=== PATIENT | female | born 1955 | race Hispanic/Latino ===

== ENCOUNTER 2017-07-05 11:24 | Inpatient (IN) | payer OTHER ==
--- NOTE | 2017-07-05 12:21 | XRay Report ---
AP CHEST: HISTORY: Dyspnea AP view of the chest demonstrates a normal mediastinal and cardiac contour with clear lungs and normal bony and soft tissue structures. Azygos lobe is noted. IMPRESSION: Unremarkable AP chest.
--- NOTE | 2017-07-05 12:30 | Emergency Department Report ---
ED General Adult HPI - General Chief complaint: Dyspnea/Respdistress Stated complaint: DIFFICULTY BREATHING Time Seen by Provider: 07/05/17 11:57 Source: patient Mode of arrival: Stretcher Limitations: Physical Limitation - History of Present Illness Initial comments: The patient arrives via EMS accompanied by her . She was placed on CPAP in the field. I do not know what her initial room air saturation was likely it was low. Upon arrival she is switched to BiPAP. She states that she has had tightness of her anterior chest. Her reports that she was seen at [place] on 05/31 and told she had the flu. She has been coughing up some [place] sputum. She thinks that she had a fever about 3 days ago but not subsequently. Her chest tightness is mildly persistent not radiating nor pleuritic. She's had no recent travel. She denies leg or abdominal pain. Previous review of her records indicates that she was admitted here in 2014. She had an exacerbation of COPD. She is a type II diabetic. She states that she does use CPAP at night. -: Gradual, days(s) Location: chest Radiation: non-radiation Severity scale (0 -10): 7 Quality: other (tightness) Consistency: now resolved (largely) Improves with: none Worsens with: none Associated Symptoms: cough, fever/chills, shortness of breath Treatments Prior to Arrival: other - Related Data Previous Rx's Medication Instructions Recorded Last Taken Type Aspirin [Aspirin BABY CHEW TAB] 81 mg PO ONCE #30 tab.chew 08/18/14 Unknown Rx Benzonatate [Tessalon Perles] 100 mg PO Q8HR #30 capsule 08/18/14 Unknown Rx Glimepiride [Amaryl] 1 mg PO QDDIAB #30 tablet 08/18/14 Unknown Rx Levothyroxine [Synthroid] 150 mcg PO QAM #30 tab 08/18/14 Unknown Rx Loratadine [Claritin] 10 mg PO QDAY #30 tablet 08/18/14 Unknown Rx Mometasone/Formoterol [Dulera 200 2 puff IH BID #1 hfa.aer.ad 08/18/14 Unknown Rx Mcg/5 Mcg Inhaler] Montelukast [Singulair] 10 mg PO QPM #30 tablet 08/18/14 Unknown Rx Omeprazole [PriLOSEC] 20 mg PO QDAY #30 capsule.dr 08/18/14 Unknown Rx Prednisone [predniSONE (Grady) ER 20 mg PO QDAY #40 tab 08/18/14 Unknown Rx TAB] Tiotropium [Spiriva] 18 mcg INHALATION DAILY #10 box 08/18/14 Unknown Rx metFORMIN [Glucophage] 500 mg PO BID #60 tablet 08/18/14 Unknown Rx Allergies Allergy/AdvReac Type Severity Reaction Status Date / Time No Known Allergies Allergy Verified 10/08/14 17:35 ED Review of Systems ROS: Stated complaint: DIFFICULTY BREATHING Other details as noted in HPI Constitutional: denies: chills, fever Eyes: denies: eye pain, eye discharge, vision change ENT: denies: ear pain, throat pain Respiratory: cough, shortness of breath, wheezing Cardiovascular: chest pain. denies: palpitations Endocrine: no symptoms reported Gastrointestinal: denies: abdominal pain, nausea, diarrhea Genitourinary: denies: urgency, dysuria, discharge Musculoskeletal: denies: back pain, joint swelling, arthralgia Skin: denies: rash, lesions Neurological: denies: headache, weakness, paresthesias Psychiatric: denies: anxiety, depression Hematological/Lymphatic: denies: easy bleeding, easy bruising ED Past Medical Hx - Past Medical History Hx Hypertension: Yes Hx CVA: No Hx Congestive Heart Failure: No Hx Diabetes: Yes Hx Deep Vein Thrombosis: No Hx Liver Disease: Yes Hx Sickle Cell Disease: No Hx Psychiatric Treatment: No Hx Asthma: No Hx COPD: Yes Hx Dementia: No Hx HIV: No Additional medical history: Hypothyriodism - Surgical History Past Surgical History?: No Hx Coronary Stent: No Hx Open Heart Surgery: No Hx Pacemaker: No Hx Internal Defibrillator: No Hx Cholecystectomy: No Hx Appendectomy: No Hx Breast Surgery: No - Social History Smoking Status: Former Smoker Substance Use Type: None - Medications Home Medications: Home Medications Medication Instructions Recorded Confirmed Last Taken Type Aspirin [Aspirin BABY CHEW TAB] 81 mg PO ONCE #30 tab.chew 08/18/14 Unknown Rx Benzonatate [Tessalon Perles] 100 mg PO Q8HR #30 capsule 08/18/14 Unknown Rx Glimepiride [Amaryl] 1 mg PO QDDIAB #30 tablet 08/18/14 Unknown Rx Levothyroxine [Synthroid] 150 mcg PO QAM #30 tab 08/18/14 Unknown Rx Loratadine [Claritin] 10 mg PO QDAY #30 tablet 08/18/14 Unknown Rx Mometasone/Formoterol [Dulera 200 2 puff IH BID #1 hfa.aer.ad 08/18/14 Unknown Rx Mcg/5 Mcg Inhaler] Montelukast [Singulair] 10 mg PO QPM #30 tablet 08/18/14 Unknown Rx Omeprazole [PriLOSEC] 20 mg PO QDAY #30 capsule.dr 08/18/14 Unknown Rx Prednisone [predniSONE (Grady) ER 20 mg PO QDAY #40 tab 08/18/14 Unknown Rx TAB] Tiotropium [Spiriva] 18 mcg INHALATION DAILY #10 box 08/18/14 Unknown Rx metFORMIN [Glucophage] 500 mg PO BID #60 tablet 08/18/14 Unknown Rx ED Physical Exam - General Limitations: Physical Limitation General appearance: alert, in no apparent distress, obese - Head Head exam: Present: atraumatic, normocephalic - Eye Eye exam: Present: normal appearance, PERRL, EOMI. Absent: scleral icterus - ENT ENT exam: Present: mucous membranes moist - Neck Neck exam: Present: normal inspection. Absent: tenderness, meningismus - Respiratory Respiratory exam: Present: decreased breath sounds (somewhat distant), other ( on BiPAP). Absent: respiratory distress, accessory muscle use - Cardiovascular Cardiovascular Exam: Present: regular rate, normal rhythm. Absent: systolic murmur, diastolic murmur, rubs, gallop - GI/Abdominal GI/Abdominal exam: Present: soft, normal bowel sounds. Absent: distended, tenderness, guarding, rebound - Extremities Exam Extremities exam: Present: normal inspection, normal capillary refill. Absent: calf tenderness - Back Exam Back exam: Present: normal inspection - Neurological Exam Neurological exam: Present: alert, oriented X3, CN II-XII intact. Absent: motor sensory deficit - Psychiatric Psychiatric exam: Present: normal affect, normal mood - Skin Skin exam: Present: warm, dry, intact, normal color. Absent: rash ED Course Vital Signs 07/05/17 07/05/17 11:32 12:21 Temperature 98.1 F Pulse Rate 92 H Respiratory 24 22 Rate Blood Pressure 145/63 O2 Sat by Pulse 95 95 Oximetry - Reevaluation(s) Reevaluation #1: D-dimer and additional labs yet pending. Patient is doing well on BiPAP. ABG is still pending. Discussed with Dr. Crouch. He will order antibiotics and provide further care. 07/05/17 13:02 ED Medical Decision Making - Lab Data Result diagrams: 07/05/17 12:20 - EKG Data -: EKG Interpreted by Me EKG shows normal: sinus rhythm, axis, intervals, QRS complexes, ST-T waves - EKG Data Interpretation: other (mild inferolateral ST sagging and prolonged QT) - Radiology Data interpreted by me: Chest x-ray shows a normal cardiac silhouette. There is some basilar atelectasis mostly on the left. Critical Care Time: Yes Critical care time in (mins) excluding proc time.: 40 Critical care attestation.: If time is entered above; I have spent that time in minutes in the direct care of this critically ill patient, excluding procedure time. 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
[2017-07-05 12:42] LABS: Basophils % (Auto) 0.1 % (0.0-1.8); Hematocrit 42.2 % (30.3-42.9); Lymphocytes # (Auto) 0.7 K/mm3 (1.2-5.4); Lymphocytes % (Auto) 10.1 % (13.4-35.0); Mean Corpuscular HGB Conc 33 % (30-34); Mean Corpuscular Volume 78 fl (79-97); Monocytes # (Auto) 0.2 K/mm3 (0.0-0.8); Monocytes % (Auto) 3.7 % (0.0-7.3); Platelet Count 120 K/mm3 (140-440); Red Blood Count 5.42 M/mm3 (3.65-5.03); Red Cell Distribution Width 19.2 % (13.2-15.2)
[2017-07-05 12:43] LABS: Mean Corpuscular Hemoglobin 26 pg (28-32)
--- NOTE | 2017-07-05 12:53 | History and Physical Report ---
History of Present Illness Chief complaint: I cant breathe, and i keep coughting History of present illness: 61 YO Female with HTN, DM, COPD, Hypothyroidism, Morbid Obesity presents to ED for evaluation. Pt states that she has experienced shortness of breath, and productive cough of [place] sputum with increased sputum production over the past week, with worsening symptoms over the past 3 days. Pt was seen in clinic on and was told that she has influenza and initiated on Tamiflu. Pt is day 4 of 5 on her Tamiflu. Pt acknowledges subjective fever, and productive cough with increasing amounts of [place] sputum. Pt denies CP, Palpitations, NVD, syncope, leg swelling, calf pain, prolonged travel/immobility, individual/family history of DVT/PE, Trauma, recent ill contacts. EMS notified and upon arrival patient was found to have respiratory failure and was placed on NIPPV and transported to [facility]. Pt seen and evaluated in ED and found to have COPD exacerbation, complicated by acute hypoxemic respiratory failure. Pt admitted to telemetry. Past History Past Medical History: COPD, diabetes, hypertension, hypothyroidism, other ( Obesity) Past Surgical History: No surgical history, Other (reviewed) Social history: , lives with family. denies: smoking, alcohol abuse, prescription drug abuse Family history: diabetes, hypertension Medications and Allergies Allergies Allergy/AdvReac Type Severity Reaction Status Date / Time No Known Allergies Allergy Verified 10/08/14 17:35 Home Medications Medication Instructions Recorded Confirmed Last Taken Type Aspirin [Aspirin BABY CHEW TAB] 81 mg PO ONCE #30 tab.chew 08/18/14 Unknown Rx Benzonatate [Tessalon Perles] 100 mg PO Q8HR #30 capsule 08/18/14 Unknown Rx Glimepiride [Amaryl] 1 mg PO QDDIAB #30 tablet 08/18/14 Unknown Rx Levothyroxine [Synthroid] 150 mcg PO QAM #30 tab 08/18/14 Unknown Rx Loratadine [Claritin] 10 mg PO QDAY #30 tablet 08/18/14 Unknown Rx Mometasone/Formoterol [Dulera 200 2 puff IH BID #1 hfa.aer.ad 08/18/14 Unknown Rx Mcg/5 Mcg Inhaler] Montelukast [Singulair] 10 mg PO QPM #30 tablet 08/18/14 Unknown Rx Omeprazole [PriLOSEC] 20 mg PO QDAY #30 capsule. 08/18/14 Unknown Rx Prednisone [predniSONE (Grady) ER 20 mg PO QDAY #40 tab 08/18/14 Unknown Rx TAB] Tiotropium [Spiriva] 18 mcg INHALATION DAILY #10 box 08/18/14 Unknown Rx metFORMIN [Glucophage] 500 mg PO BID #60 tablet 08/18/14 Unknown Rx Review of Systems Constitutional: no weight loss, no weight gain, no fever, no chills, no sweats, no night sweats Ears, nose, mouth and throat: no ear pain, no ear discharge, no tinnitis, no decreased hearing, no nose pain, no nasal congestion Breasts: no change in shape, no swelling, no mass Cardiovascular: no chest pain, no orthopnea, no palpitations Respiratory: cough with sputum, excessive sputum, shortness of breath, wheezing Gastrointestinal: no nausea, no vomiting, no diarrhea, no constipation Genitourinary Female: no pelvic pain, no flank pain, no menorrhagia, no dysuria , no urinary frequency, no urgency Rectal: no pain, no incontinence, no bleeding Musculoskeletal: no neck stiffness, no neck pain, no shooting arm pain, no arm numbness/tingling, no low back pain, no shooting leg pain, no leg numbness/ tingling Integumentary: no rash, no pruritis, no redness, no sores, no wounds, no jaundice Neurological: no head injury, no transient paralysis, no paralysis, no weakness , no parathesias, no numbness, no tingling Psychiatric: no anxiety, no memory loss, no change in sleep habits, no sleep disturbances, no insomnia, no hypersomnia, no change in appetite Endocrine: no cold intolerance, no heat intolerance, no polyphagia, no polydipsia, no polyuria, no nocturia Hematologic/Lymphatic: no easy bruising, no easy bleeding, no lymphadenopathy, no lymphedema Allergic/Immunologic: no urticaria, no allergic rhinitis, no wheezing, no persistent infections, no anaphylaxis Exam - Constitutional Vitals: Temp Pulse Resp BP Pulse Ox 98.1 F 92 H 22 145/63 95 07/05/17 11:32 07/05/17 11:32 07/05/17 12:21 07/05/17 11:32 07/05/17 12:21 General appearance: Present: mild distress, obese - Respiratory Respiratory effort: labored Respiratory: bilateral: diminished, rhonchi - Cardiovascular Heart Sounds: Present: S1 & S2. Absent: rub, click - Extremities Extremities: pulses symmetrical, No edema Peripheral Pulses: within normal limits - Abdominal General gastrointestinal: Present: soft, non-tender, non-distended, normal bowel sounds Female genitourinary: Present: normal - Integumentary Integumentary: Present: clear, warm, dry - Musculoskeletal Musculoskeletal: generalized weakness - Psychiatric Psychiatric: appropriate mood/affect, intact judgment & insight - Neurologic Neurologic: CNII-XII intact, moves all extremities Results - Labs CBC & Chem 7: 07/05/17 12:20 07/05/17 12:20 Labs: Abnormal lab results 07/05/17 Range/Units 12:20 RBC 5.42 H (3.65-5.03) M/mm3 MCV 78 L (79-97) fl MCH 26 L (28-32) pg RDW 19.2 H (13.2-15.2) % Plt Count 120 L (140-440) K/mm3 Lymph % (Auto) 10.1 L (13.4-35.0) % Lymph # 0.7 L (1.2-5.4) K/mm3 Seg Neutrophils % 86.1 H (40.0-70.0) % Assessment and Plan - Patient Problems (1) Acute respiratory failure Current Visit: Yes Status: Acute Qualifiers: Respiratory failure complication: hypoxia Qualified Code(s): J96.01 - Acute respiratory failure with hypoxia Plan to address problem: NIPPV, supplemental oxygen, nebulizer therapy, pulse oximetry, supportive care. (2) HTN (hypertension) Current Visit: Yes Status: Acute Qualifiers: Hypertension type: essential hypertension Qualified Code(s): I10 - Essential (primary) hypertension Plan to address problem: monitor bp q shift, continue medical management (3) Diabetes Current Visit: Yes Status: Acute Plan to address problem: ADA diet, insulin, accu check (4) Hypothyroid Current Visit: Yes Status: Acute Qualifiers: Hypothyroidism type: acquired Qualified Code(s): E03.9 - Hypothyroidism, unspecified Plan to address problem: continue current therapy, continue thyroid replacement. (5) COPD exacerbation Current Visit: No Status: Acute Plan to address problem: IV abx, steroids, supplemental oxygen, NIPPV, Chest X ray, D dimer (6) DVT prophylaxis Current Visit: No Status: Acute
[2017-07-05] MEDS ORDERED: PROVENTIL IH PRN (13:00)
[2017-07-05] MEDS ORDERED: ZOFRAN IV PRN (13:00)
[2017-07-05] MEDS ORDERED: TYLENOL PO PRN (13:00)
[2017-07-05] MEDS ORDERED: BABY ASPIRIN PO ONE (13:05)
[2017-07-05 13:09] LABS: Alanine Aminotransferase 21 units/L (7-56); Albumin 3.4 g/dL (3.9-5); BUN/Creatinine Ratio 15; Blood Urea Nitrogen 6 mg/dL (7-17); Calcium 8.6 mg/dL (8.4-10.2); Hemolysis Index 7
[2017-07-05 13:26] LABS: Magnesium 2.5 mg/dL (1.7-2.3)
[2017-07-05 13:34] LABS: Creatine Kinase MB 1.4 ng/mL (0.0-4.0)
[2017-07-05 13:38] LABS: INR 0.91 (0.87-1.13)
[2017-07-05 13:39] LABS: Partial Thromboplastin Time 32.6 Sec. (24.2-36.6)
[2017-07-05] MEDS: TESSALON PERLES PO SCH ×2 (14:39→22:47)
[2017-07-05] MEDS: SINGULAIR PO SCH (19:58)
[2017-07-05] MEDS: BROVANA NEBU IH SCH (20:17)
[2017-07-05] MEDS: PULMICORT IH SCH (20:18)
[2017-07-05] MEDS ORDERED: NON-FORMULARY (Mometasone/Formoterol [Dulera 200 Mcg/5 Mcg Inhaler] 2 PUFF) IH SCH (22:00)
[2017-07-05] MEDS: TAMIFLU PO SCH (22:47)
[2017-07-06] MEDS: TESSALON PERLES PO SCH ×3 (06:41→21:27)
--- NOTE | 2017-07-06 08:18 | Progress Note ---
Assessment and Plan Assessment and plan: --Acute on chronic hypoxic respiratory failure; Oxygen titrated O2 sats to more than 90%, BiPAP as needed, nebulizers, IV steroids, IV antibiotics and supportive care --Acute exacerbation of COPD; with acute bronchitis; continue oxygen support, nebulizers, steroids and antibiotics --Acute pneumonitis; IV antibiotic and supportive care --Hypertension; moderate control, Continue current antihypertensives and when necessary medication --Type 2 diabetes mellitus well controlled; Accu-Chek sliding scale coverage and ADA diet and insulin as needed --Hypothyroidism; stable on Synthroid, closely monitor --Anxiety disorder; continue Zoloft --Chronic pain syndrome; patient is on liquid morphine 5 mg 6 times a day when necessary[re by palliative care]c --Morbid obesity; BMI 46.6; counseling done, patient may benefit by bariatric surgical evaluation as outpatient upon discharge Once medically stable --Moderate protein calorie malnutrition; supportive care and nutrition supplements --DVT prophylaxis with Lovenox --Full CODE STATUS Patient reports that she was in hospice in the past Case management for discharge planning when medically stable Disposition; follow pulmonary evaluation and recommendations, palliative care DO NOT RESUSCITATE, but not DO NOT INTUBATE[should be intubated if needed] per advanced directives Case discussed with [facility] personal [phone] History Interval history: Patient seen and evaluated in ED awaiting ICU bed assignment Admitted with acute respiratory failure, feels slightly better Continues to have shortness of breath on nasal cannula oxygen Patient denies chest pain Vital signs reviewed Alert awake oriented 3 in mild distress Hospitalist Physical - Constitutional Vitals: Temp Pulse Resp BP Pulse Ox 98.4 F 66 19 169/76 96 07/05/17 22:00 07/06/17 07:00 07/06/17 07:00 07/06/17 07:00 07/06/17 07:00 General appearance: Present: mild distress, well-nourished, obese (morbidly obese) - EENT Eyes: Present: PERRL, EOM intact - Neck Neck: Present: supple, normal ROM - Respiratory Respiratory effort: normal Respiratory: bilateral: diminished, rhonchi, negative: rales, wheezing - Cardiovascular Rhythm: regular Heart Sounds: Present: S1 & S2 - Extremities Extremities: no ischemia, No edema - Abdominal General gastrointestinal: soft, non-tender, non-distended, normal bowel sounds - Integumentary Integumentary: Present: clear, warm - Psychiatric Psychiatric: appropriate mood/affect, cooperative - Neurologic Neurologic: CNII-XII intact, moves all extremities Results - Labs CBC & Chem 7: 07/05/17 12:20 07/06/17 08:40 Labs: Laboratory Last Values WBC 6.7 K/mm3 (4.5-11.0) 07/05/17 12:20 RBC 5.42 M/mm3 (3.65-5.03) H 07/05/17 12:20 Hgb 14.0 gm/dl (10.1-14.3) 07/05/17 12:20 Hct 42.2 % (30.3-42.9) 07/05/17 12:20 MCV 78 fl (79-97) L 07/05/17 12:20 MCH 26 pg (28-32) L 07/05/17 12:20 MCHC 33 % (30-34) 07/05/17 12:20 RDW 19.2 % (13.2-15.2) H 07/05/17 12:20 Plt Count 120 K/mm3 (140-440) L 07/05/17 12:20 Lymph % (Auto) 10.1 % (13.4-35.0) L 07/05/17 12:20 [place] % (Auto) 3.7 % (0.0-7.3) 07/05/17 12:20 Eos % (Auto) 0.0 % (0.0-4.3) 07/05/17 12:20 Baso % (Auto) 0.1 % (0.0-1.8) 07/05/17 12:20 Lymph # 0.7 K/mm3 (1.2-5.4) L 07/05/17 12:20 [place] # 0.2 K/mm3 (0.0-0.8) 07/05/17 12:20 Eos # 0.0 K/mm3 (0.0-0.4) 07/05/17 12:20 Baso # 0.0 K/mm3 (0.0-0.1) 07/05/17 12:20 Seg Neutrophils % 86.1 % (40.0-70.0) H 07/05/17 12:20 Seg Neutrophils # 5.7 K/mm3 (1.8-7.7) 07/05/17 12:20 PT 12.7 Sec. (12.2-14.9) 07/05/17 13:07 INR 0.91 (0.87-1.13) 07/05/17 13:07 APTT 32.6 Sec. (24.2-36.6) 07/05/17 13:07 D-Dimer 264.64 ng/mlDDU (0-234) H 07/05/17 13:07 POC ABG pH 7.336 (7.35-7.45) L 07/05/17 14:36 POC ABG pCO2 68.3 (35-45) H 07/05/17 14:36 POC ABG pO2 79 (80-105) L 07/05/17 14:36 POC ABG HCO3 36.5 07/05/17 14:36 POC ABG Total CO2 39 07/05/17 14:36 POC ABG O2 Sat 94 07/05/17 14:36 POC ABG Base Excess 11 07/05/17 14:36 FiO2 40 % 07/05/17 14:36 Sodium 139 mmol/L (137-145) 07/05/17 12:20 Potassium 3.2 mmol/L (3.6-5.0) L 07/05/17 12:20 Chloride 91.7 mmol/L (98-107) L 07/05/17 12:20 Carbon Dioxide 32 mmol/L (22-30) H 07/05/17 12:20 Anion Gap 19 mmol/L 07/05/17 12:20 BUN 6 mg/dL (7-17) L 07/05/17 12:20 Creatinine 0.4 mg/dL (0.7-1.2) L 07/05/17 12:20 Estimated GFR > 60 ml/min 07/05/17 12:20 BUN/Creatinine Ratio 15 % 07/05/17 12:20 Glucose 132 mg/dL (65-100) H 07/05/17 12:20 Ketones Quantitative Small (Negative) 07/05/17 13:02 Calcium 8.6 mg/dL (8.4-10.2) 07/05/17 12:20 Magnesium 2.50 mg/dL (1.7-2.3) H 07/05/17 13:07 Total Bilirubin 1.00 mg/dL (0.1-1.2) 07/05/17 12:20 AST 22 units/L (5-40) 07/05/17 12:20 ALT 21 units/L (7-56) 07/05/17 12:20 Alkaline Phosphatase 46 units/L (35-129) 07/05/17 12:20 Total Creatine Kinase 27 units/L (30-135) L 07/05/17 13:07 CK-MB (CK-2) 1.4 ng/mL (0.0-4.0) 07/05/17 13:07 CK-MB (CK-2) Rel Index 5.1 (0-4) H 07/05/17 13:07 Troponin T < 0.010 ng/mL (0.00-0.029) 07/05/17 13:07 NT-Pro-B Natriuret Pep 44.53 pg/mL (0-900) 07/05/17 13:07 Total Protein 6.7 g/dL (6.3-8.2) 07/05/17 12:20 Albumin 3.4 g/dL (3.9-5) L 07/05/17 12:20 Albumin/Globulin Ratio 1.0 % 07/05/17 12:20
[2017-07-06] MEDS: PULMICORT IH SCH ×2 (08:36→20:51)
[2017-07-06] MEDS: BROVANA NEBU IH SCH ×2 (08:36→20:51)
[2017-07-06 09:07] LABS: BUN/Creatinine Ratio 32; Blood Urea Nitrogen 16 mg/dL (7-17); Calcium 9.6 mg/dL (8.4-10.2); Hemolysis Index 6
[2017-07-06] MEDS ORDERED: SYNTHROID PO SCH (10:00)
[2017-07-06] MEDS ORDERED: NON-FORMULARY (Omeprazole [Prilosec] 20 MG) PO SCH (10:00)
[2017-07-06] MEDS: TAMIFLU PO SCH (12:22)
[2017-07-06] MEDS: PROTONIX PO SCH (12:22)
--- NOTE | 2017-07-06 13:34 | Consultation ---
History of Present Illness Consult date: 07/06/17 Reason for consult: dyspnea, COPD, other (bronchitsi,respiratory failure following FUNMI) History of present illness: called to se 61 y/o female with PMH of COPD, TX for FUNMI at [facility] 3 dyas ago. Presented there with malaise, cough,wheezing,nasuse and Gi discomfort. TX for the flu w tamiflu and DH. Comes with worsening Sx, wheezing.now yellow sputum. No flu test on chart. She is on nebulizer therapy but cannot recall any other additional respiratory medications ABG with Laboratory Tests 07/05/17 14:36 POC ABG pH 7.336 L POC ABG pCO2 68.3 H POC ABG pO2 79 L POC ABG HCO3 36.5 Started on BiPAP and admitted, called to evaluate. On home TX with BPAP and oxygen with [facility] for COPD. No EUGENIA, sleep study HX. Currently on oxygen appears to be feeling better off BiPAP Past History Past Medical History: COPD, diabetes, hypertension, hypothyroidism, other ( Obesity) Past Surgical History: No surgical history, Other (reviewed) Social history: , lives with family. denies: smoking, alcohol abuse, prescription drug abuse Family history: diabetes, hypertension Medications and Allergies Allergies Allergy/AdvReac Type Severity Reaction Status Date / Time No Known Allergies Allergy Verified 10/08/14 17:35 Home Medications Medication Instructions Recorded Confirmed Last Taken Type Aspirin [Aspirin BABY CHEW TAB] 81 mg PO ONCE #30 tab.chew 08/18/14 07/06/1709/16 Rx Benzonatate [Tessalon Perles] 100 mg PO Q8HR #30 capsule 08/18/14 07/06/1707/05 Rx Glimepiride [Amaryl] 1 mg PO QDDIAB #30 tablet 08/18/14 07/06/17 07/05/17 Rx Levothyroxine [Synthroid] 150 mcg PO QAM #30 tab 08/18/14 07/06/17 07/05/17 Rx Loratadine [Claritin] 10 mg PO QDAY #30 tablet 08/18/14 07/06/17 07/05/17 Rx Mometasone/Formoterol [Dulera 200 2 puff IH BID #1 hfa.aer.ad 08/18/14 07/06/17 07/05/17 Rx Mcg/5 Mcg Inhaler] Montelukast [Singulair] 10 mg PO QPM #30 tablet 08/18/14 07/06/17 07/05/17 Rx Omeprazole [PriLOSEC] 20 mg PO QDAY #30 capsule. 08/18/14 07/06/17 07/05/17 Rx Prednisone [predniSONE (Grady) ER 20 mg PO QDAY #40 tab 08/18/14 07/06/17 Rx TAB] Tiotropium [Spiriva] 18 mcg INHALATION DAILY #10 box 08/18/14 07/06/17 07/05/17 Rx metFORMIN [Glucophage] 500 mg PO BID #60 tablet 08/18/14 07/06/17 07/05/17 Rx Active Meds: Active Medications Acetaminophen (Tylenol) 650 mg PO Q4H PRN PRN Reason: Pain MILD(1-3)/Fever >100.5/LEYVA Albuterol (Proventil) 2.5 mg IH Q4HRT PRN PRN Reason: Shortness Of Breath Arformoterol Tartrate (Brovana Nebu) 15 mcg IH Q12HRT [facility] Last Admin: 07/06/17 08:36 Dose: 15 mcg Benzonatate (Tessalon Perles) 100 mg PO Q8HR [facility] Last Admin: 07/06/17 06:41 Dose: 100 mg Budesonide (Pulmicort) 1 mg IH Q12HRT [facility] Last Admin: 07/06/17 08:36 Dose: 1 mg Enoxaparin Sodium (Lovenox) 40 mg SUB-Q QDAY@2200 [facility] Levothyroxine Sodium (Synthroid) 150 mcg PO DAILY@0600 [facility] Loratadine (Claritin) 10 mg PO QDAY [facility] Methylprednisolone Sodium Succinate (Solu-Medrol) 40 mg IV Q12HR [facility] Last Admin: 07/06/17 12:22 Dose: 40 mg Montelukast Sodium (Singulair) 10 mg PO QPM [facility] Last Admin: 07/05/17 19:58 Dose: 10 mg Ondansetron HCl (Zofran) 4 mg IV Q8H PRN PRN Reason: N/V unrelieved by Jason Oseltamivir Phosphate (Tamiflu) 75 mg PO BID [facility] Last Admin: 07/06/17 12:22 Dose: 75 mg Pantoprazole Sodium (Protonix) 20 mg PO QDAY [facility] Last Admin: 07/06/17 12:22 Dose: 20 mg Tiotropium Beyer (Spiriva) 1 puff IH DAILY [facility] Review of Systems Constitutional: fever, fatigue, weakness, malaise Ears, nose, mouth and throat: nasal congestion Cardiovascular: orthopnea, shortness of breath, dyspnea on exertion, no chest pain, no palpitations Respiratory: shortness of breath, dyspnea on exertion, congestion, wheezing Gastrointestinal: nausea, no vomiting Integumentary: no rash, no pruritis, no redness Neurological: no head injury, no transient paralysis, no paralysis, no weakness , no parathesias Psychiatric: anxiety Hematologic/Lymphatic: no easy bruising, no easy bleeding, no lymphadenopathy, no lymphedema Physical Examination Vital signs: Vital Signs Temp Pulse Resp BP Pulse Ox 98.1 F 92 H 24 145/63 95 07/05/17 11:32 07/05/17 11:32 07/05/17 11:32 07/05/17 11:32 07/05/17 11:32 General appearance: no acute distress, alert, other (morbid obese) Eyes: non-icteric ENT: oropharynx moist, oropharynx erythematous Neck: supple, no JVD Ascultation: Bilateral: wheezes, rhonchi Cardiovascular: regular rate and rhythm Gastrointestinal: normoactive bowel sounds, non-distended Integumentary: normal Extremities: no cyanosis Musculoskeletal: no deformities normal mental status, non-focal exam, CN II-XII normal, motor strength normal and mood appropriate, affect normal Results - Laboratory Findings CBC and BMP: 07/05/17 12:20 07/06/17 08:40 ABG POC ABG pH 7.336 (7.35-7.45) L 07/05/17 14:36 POC ABG pCO2 68.3 (35-45) H 07/05/17 14:36 POC ABG pO2 79 (80-105) L 07/05/17 14:36 POC ABG HCO3 36.5 07/05/17 14:36 POC ABG Total CO2 39 07/05/17 14:36 POC ABG O2 Sat 94 07/05/17 14:36 PT/INR, D-dimer PT 12.7 Sec. (12.2-14.9) 07/05/17 13:07 INR 0.91 (0.87-1.13) 07/05/17 13:07 D-Dimer 264.64 ng/mlDDU (0-234) H 07/05/17 13:07 Abnormal lab findings: Abnormal Labs 07/05/17 07/05/17 07/05/17 12:20 12:20 13:07 RBC 5.42 H MCV 78 L MCH 26 L RDW 19.2 H Plt Count 120 L Lymph % (Auto) 10.1 L Lymph # 0.7 L Seg Neutrophils % 86.1 H D-Dimer POC ABG pH POC ABG pCO2 POC ABG pO2 Potassium 3.2 L Chloride 91.7 L Carbon Dioxide 32 H BUN 6 L Creatinine 0.4 L Glucose 132 H Magnesium Total Creatine Kinase 27 L CK-MB (CK-2) Rel Index 5.1 H Albumin 3.4 L 07/05/17 07/05/17 07/05/17 13:07 13:07 14:36 RBC MCV MCH RDW Plt Count Lymph % (Auto) Lymph # Seg Neutrophils % D-Dimer 264.64 H POC ABG pH 7.336 L POC ABG pCO2 68.3 H POC ABG pO2 79 L Potassium Chloride Carbon Dioxide BUN Creatinine Glucose Magnesium 2.50 H Total Creatine Kinase CK-MB (CK-2) Rel Index Albumin 07/06/17 08:40 RBC MCV MCH RDW Plt Count Lymph % (Auto) Lymph # Seg Neutrophils % D-Dimer POC ABG pH POC ABG pCO2 POC ABG pO2 Potassium Chloride 96.3 L Carbon Dioxide 37 H BUN Creatinine 0.5 L Glucose 156 H Magnesium Total Creatine Kinase CK-MB (CK-2) Rel Index Albumin - Diagnostic Findings Chest x-ray: report reviewed, image reviewed Assessment and Plan A/C respiratory failure with exacerbation.TX with BPAp COPD with exacerbation FUNMI AECB, post flu? Obesity Rec Flu contact precautions Continue tamiflu, complete 7 days Tx overall or per clinical response Rocephin IV SC DVT prophylaxis Albuterol 2.5 milligram nebulizations every 4-6 hours with or without ipratropium Solu-Medrol 40-60 mg IV every 6-8 hours Oxygen support via nasal cannula or mask to maintain oximetry over 92%. Continue BiPAP tonight and continue monitoring either at telemetry monitoring level or ICU. Thanks
[2017-07-06] MEDS: SYNTHROID PO SCH (13:43)
[2017-07-06] MEDS: CLARITIN PO SCH (13:43)
[2017-07-06] MEDS: SPIRIVA IH SCH (15:00)
[2017-07-06] MEDS ORDERED: MORPHINE PO PRN (16:06)
[2017-07-06] MEDS: SINGULAIR PO SCH (21:27)
[2017-07-06] MEDS: LOVENOX SUB-Q SCH (21:27)
[2017-07-07] MEDS: TAMIFLU PO SCH ×3 (01:04→21:53)
[2017-07-07] MEDS: SYNTHROID PO SCH (05:18)
[2017-07-07] MEDS: TESSALON PERLES PO SCH ×3 (05:18→21:49)
[2017-07-07 06:46] LABS: Basophils % (Auto) 0.1 % (0.0-1.8); Hematocrit 41.3 % (30.3-42.9); Hemoglobin 13.2 gm/dl (10.1-14.3); Lymphocytes # (Auto) 1.1 K/mm3 (1.2-5.4); Lymphocytes % (Auto) 9.8 % (13.4-35.0); Mean Corpuscular HGB Conc 32 % (30-34); Mean Corpuscular Volume 80 fl (79-97); Monocytes # (Auto) 0.5 K/mm3 (0.0-0.8); Monocytes % (Auto) 4.8 % (0.0-7.3); Platelet Count 134 K/mm3 (140-440); Red Blood Count 5.17 M/mm3 (3.65-5.03); Red Cell Distribution Width 18.5 % (13.2-15.2)
[2017-07-07 06:50] LABS: Alanine Aminotransferase 16 units/L (7-56); Albumin 3.8 g/dL (3.9-5); BUN/Creatinine Ratio 28; Bilirubin,Direct < 0.2 mg/dL (0-0.2); Blood Urea Nitrogen 17 mg/dL (7-17); Calcium 9.4 mg/dL (8.4-10.2); Hemolysis Index 24
[2017-07-07 07:01] LABS: Mean Corpuscular Hemoglobin 26 pg (28-32)
[2017-07-07] MEDS: PULMICORT IH SCH (08:39)
[2017-07-07] MEDS: BROVANA NEBU IH SCH (08:40)
--- NOTE | 2017-07-07 09:35 | Progress Note ---
Assessment and Plan Assessment and plan: 61 YO Female with HTN, DM, COPD, Hypothyroidism, Morbid Obesity presents to ED for evaluation. pw with fever, cough, sob and wheezing --Acute on chronic hypoxic respiratory failure; Oxygen titrated O2 sats to more than 90%, BiPAP as needed, nebulizers, IV steroids, IV antibiotics and supportive care --Acute exacerbation of COPD; with acute bronchitis; continue oxygen support, nebulizers, steroids and antibiotics -pumonary input appreciated -influenza; clinically diagnosed, continue tamiflu --Hypertension; moderate control, Continue current antihypertensives and when necessary medication --Type 2 diabetes mellitus well controlled; Accu-Chek sliding scale coverage and ADA diet and insulin as needed --Hypothyroidism; stable on Synthroid, closely monitor --Anxiety disorder; continue Zoloft --Chronic pain syndrome; continue analgesics, follows at palliative care at [place] --Morbid obesity; BMI 46.6; counseling done, patient may benefit by bariatric surgical evaluation as outpatient upon discharge Once medically stable --Moderate protein calorie malnutrition; supportive care and nutrition supplements --DVT prophylaxis with Lovenox --Full CODE STATUS Case management for discharge planning when medically stable; she would prefer to go home than a facility Disposition; follow pulmonary evaluation and recommendations, palliative care DO NOT RESUSCITATE, but wants to be intubated if needed, Case discussed with [facility] personal [phone] History Interval history: Review of systems Constitutional: No fevers, no malaise, no joint pains CVS: No chest pain, no orthopnea, no dyspnea on exertion, no pedal edema GI: No abdominal pain, no diarrhea, no vomiting, no constipation Respiratory: c/o Sob, wheezing and CA Hospitalist Physical - Physical exam Narrative exam: General.: Appears well, no distress, nontoxic, obese HEENT: Moist mucous membranes, extraocular muscles intact, no lymphadenopathy Neck: supple Cardiac: S1-S2 heard Lungs: poor air entry, wheezing Abdomen: soft , nontender, nondistended, bowel sounds positive Extremities: no edema clubbing or cyanosis Skin: no rash or lesions Neurologic: no gross focal deficits Psych: appropriate behavior, appropriate mood, corporative, judgment intact - Constitutional Vitals: Temp Pulse Resp BP Pulse Ox 98.5 F 80 18 148/62 93 07/07/17 08:09 07/07/17 08:43 07/07/17 08:43 07/07/17 08:09 07/07/17 08:44 General appearance: Present: mild distress, well-nourished, obese (morbidly obese) Results - Labs CBC & Chem 7: 07/07/17 06:03 07/07/17 06:03 Labs: Laboratory Last Values WBC 11.3 K/mm3 (4.5-11.0) H 07/07/17 06:03 RBC 5.17 M/mm3 (3.65-5.03) H 07/07/17 06:03 Hgb 13.2 gm/dl (10.1-14.3) 07/07/17 06:03 Hct 41.3 % (30.3-42.9) 07/07/17 06:03 MCV 80 fl (79-97) 07/07/17 06:03 MCH 26 pg (28-32) L 07/07/17 06:03 MCHC 32 % (30-34) 07/07/17 06:03 RDW 18.5 % (13.2-15.2) H 07/07/17 06:03 Plt Count 134 K/mm3 (140-440) L 07/07/17 06:03 Lymph % (Auto) 9.8 % (13.4-35.0) L 07/07/17 06:03 [place] % (Auto) 4.8 % (0.0-7.3) 07/07/17 06:03 Eos % (Auto) 0.0 % (0.0-4.3) 07/07/17 06:03 Baso % (Auto) 0.1 % (0.0-1.8) 07/07/17 06:03 Lymph # 1.1 K/mm3 (1.2-5.4) L 07/07/17 06:03 [place] # 0.5 K/mm3 (0.0-0.8) 07/07/17 06:03 Eos # 0.0 K/mm3 (0.0-0.4) 07/07/17 06:03 Baso # 0.0 K/mm3 (0.0-0.1) 07/07/17 06:03 Seg Neutrophils % 85.3 % (40.0-70.0) H 07/07/17 06:03 Seg Neutrophils # 9.6 K/mm3 (1.8-7.7) H 07/07/17 06:03 PT 12.7 Sec. (12.2-14.9) 07/05/17 13:07 INR 0.91 (0.87-1.13) 07/05/17 13:07 APTT 32.6 Sec. (24.2-36.6) 07/05/17 13:07 D-Dimer 264.64 ng/mlDDU (0-234) H 07/05/17 13:07 POC ABG pH 7.336 (7.35-7.45) L 07/05/17 14:36 POC ABG pCO2 68.3 (35-45) H 07/05/17 14:36 POC ABG pO2 79 (80-105) L 07/05/17 14:36 POC ABG HCO3 36.5 07/05/17 14:36 POC ABG Total CO2 39 07/05/17 14:36 POC ABG O2 Sat 94 07/05/17 14:36 POC ABG Base Excess 11 07/05/17 14:36 FiO2 40 % 07/05/17 14:36 Sodium 143 mmol/L (137-145) 07/07/17 06:03 Potassium 3.7 mmol/L (3.6-5.0) 07/07/17 06:03 Chloride 95.7 mmol/L (98-107) L 07/07/17 06:03 Carbon Dioxide 40 mmol/L (22-30) H 07/07/17 06:03 Anion Gap 11 mmol/L 07/07/17 06:03 BUN 17 mg/dL (7-17) 07/07/17 06:03 Creatinine 0.6 mg/dL (0.7-1.2) L 07/07/17 06:03 Estimated GFR > 60 ml/min 07/07/17 06:03 BUN/Creatinine Ratio 28 % 07/07/17 06:03 Glucose 144 mg/dL (65-100) H 07/07/17 06:03 Hemoglobin A1c 5.8 % (4-6) 07/06/17 08:40 Ketones Quantitative Small (Negative) 07/05/17 13:02 Calcium 9.4 mg/dL (8.4-10.2) 07/07/17 06:03 Magnesium 2.50 mg/dL (1.7-2.3) H 07/07/17 06:03 Total Bilirubin 0.80 mg/dL (0.1-1.2) 07/07/17 06:03 Direct Bilirubin < 0.2 mg/dL (0-0.2) 07/07/17 06:03 Indirect Bilirubin 0.6 mg/dL 07/07/17 06:03 AST 15 units/L (5-40) 07/07/17 06:03 ALT 16 units/L (7-56) 07/07/17 06:03 Alkaline Phosphatase 43 units/L (35-129) 07/07/17 06:03 Total Creatine Kinase 27 units/L (30-135) L 07/05/17 13:07 CK-MB (CK-2) 1.4 ng/mL (0.0-4.0) 07/05/17 13:07 CK-MB (CK-2) Rel Index 5.1 (0-4) H 07/05/17 13:07 Troponin T < 0.010 ng/mL (0.00-0.029) 07/05/17 13:07 NT-Pro-B Natriuret Pep 44.53 pg/mL (0-900) 07/05/17 13:07 Total Protein 6.7 g/dL (6.3-8.2) 07/07/17 06:03 Albumin 3.8 g/dL (3.9-5) L 07/07/17 06:03 Albumin/Globulin Ratio 1.3 % 07/07/17 06:03
[2017-07-07] MEDS: ZOLOFT PO SCH (11:42)
[2017-07-07] MEDS: PROTONIX PO SCH (11:42)
[2017-07-07] MEDS: CLARITIN PO SCH (11:43)
--- NOTE | 2017-07-07 11:51 | Progress Note ---
Assessment and Plan A/C respiratory failure with exacerbation.improved, controlled COPD with exacerbation. Slowly improving FUNMI. No fever or additional clinical symptoms AECB, post flu. On antibiotics Obesity Rec Flu contact precautions Continue tamiflu, complete 7 days Tx overall or per clinical response Rocephin IV SC DVT prophylaxis Albuterol 2.5 milligram nebulizations every 4-6 hours with or without ipratropium Solu-Medrol 40-60 mg IV every 6-8 hours Oxygen support via nasal cannula or mask to maintain oximetry over 92%. Continue BiPAP tonight and continue monitoring either at telemetry monitoring level or ICU. Subjective Date of service: 07/07/17 Interval history: She reports some congestion to be still present. There were yellow expectoration but appeared to be loosening up Objective Vital Signs - 12hr 07/07/17 07/07/17 07/07/17 00:05 04:50 08:09 Temperature 98.1 F 98.5 F Pulse Rate 87 64 67 Pulse Rate [ Anterior Bilateral Throughout] Pulse Rate [ Posterior Right Bases] Respiratory 20 18 18 Rate Respiratory Rate [Anterior Bilateral Throughout] Respiratory Rate [Posterior Right Bases] Blood Pressure 186/71 148/62 O2 Sat by Pulse 94 93 94 Oximetry 07/07/17 07/07/17 08:43 08:44 Temperature Pulse Rate Pulse Rate [ 74 Anterior Bilateral Throughout] Pulse Rate [ 80 Posterior Right Bases] Respiratory Rate Respiratory 18 Rate [Anterior Bilateral Throughout] Respiratory 18 Rate [Posterior Right Bases] Blood Pressure O2 Sat by Pulse 93 Oximetry Constitutional: no acute distress, alert, other (morbid obese) Eyes: non-icteric ENT: oropharynx moist, oropharynx erythematous Neck: supple, no JVD Ascultation: Bilateral: wheezes (mild) Cardiovascular: regular rate and rhythm Gastrointestinal: normoactive bowel sounds, non-distended Integumentary: normal Extremities: no cyanosis Neurologic: normal mental status, non-focal exam, CN II-XII normal, motor strength normal and Psychiatric: mood appropriate, affect normal CBC and BMP: 07/07/17 06:03 07/07/17 06:03 ABG, PT/INR, D-dimer: ABG POC ABG pH 7.336 (7.35-7.45) L 07/05/17 14:36 POC ABG pCO2 68.3 (35-45) H 07/05/17 14:36 POC ABG pO2 79 (80-105) L 07/05/17 14:36 POC ABG HCO3 36.5 07/05/17 14:36 POC ABG Total CO2 39 07/05/17 14:36 POC ABG O2 Sat 94 07/05/17 14:36 PT/INR, D-dimer PT 12.7 Sec. (12.2-14.9) 07/05/17 13:07 INR 0.91 (0.87-1.13) 07/05/17 13:07 D-Dimer 264.64 ng/mlDDU (0-234) H 07/05/17 13:07 Abnormal lab findings: Abnormal Labs 07/05/17 07/05/17 07/05/17 12:20 12:20 13:07 WBC RBC 5.42 H MCV 78 L MCH 26 L RDW 19.2 H Plt Count 120 L Lymph % (Auto) 10.1 L Lymph # 0.7 L Seg Neutrophils % 86.1 H Seg Neutrophils # D-Dimer POC ABG pH POC ABG pCO2 POC ABG pO2 Potassium 3.2 L Chloride 91.7 L Carbon Dioxide 32 H BUN 6 L Creatinine 0.4 L Glucose 132 H Magnesium Total Creatine Kinase 27 L CK-MB (CK-2) Rel Index 5.1 H Albumin 3.4 L 07/05/17 07/05/17 07/05/17 13:07 13:07 14:36 WBC RBC MCV MCH RDW Plt Count Lymph % (Auto) Lymph # Seg Neutrophils % Seg Neutrophils # D-Dimer 264.64 H POC ABG pH 7.336 L POC ABG pCO2 68.3 H POC ABG pO2 79 L Potassium Chloride Carbon Dioxide BUN Creatinine Glucose Magnesium 2.50 H Total Creatine Kinase CK-MB (CK-2) Rel Index Albumin 07/06/17 07/07/17 07/07/17 08:40 06:03 06:03 WBC 11.3 H RBC 5.17 H MCV MCH 26 L RDW 18.5 H Plt Count 134 L Lymph % (Auto) 9.8 L Lymph # 1.1 L Seg Neutrophils % 85.3 H Seg Neutrophils # 9.6 H D-Dimer POC ABG pH POC ABG pCO2 POC ABG pO2 Potassium Chloride 96.3 L 95.7 L Carbon Dioxide 37 H 40 H BUN Creatinine 0.5 L 0.6 L Glucose 156 H 144 H Magnesium 2.50 H Total Creatine Kinase CK-MB (CK-2) Rel Index Albumin 3.8 L
[2017-07-07] MEDS: SINGULAIR PO SCH (17:11)
[2017-07-07] MEDS: LOVENOX SUB-Q SCH (21:49)
[2017-07-08] MEDS: BROVANA NEBU IH SCH ×3 (01:50→21:39)
[2017-07-08] MEDS: PULMICORT IH SCH ×3 (01:50→21:39)
[2017-07-08] MEDS: SPIRIVA IH SCH ×2 (05:02→12:49)
[2017-07-08] MEDS: SYNTHROID PO SCH (05:44)
[2017-07-08] MEDS: TESSALON PERLES PO SCH ×3 (05:44→22:55)
[2017-07-08] MEDS: CLARITIN PO SCH (10:39)
[2017-07-08] MEDS: TAMIFLU PO SCH ×2 (10:39→22:55)
[2017-07-08] MEDS: ZOLOFT PO SCH (10:39)
[2017-07-08] MEDS: PROTONIX PO SCH (10:41)
--- NOTE | 2017-07-08 11:21 | Progress Note ---
Assessment and Plan Assessment and plan: 61 YO Female with HTN, DM, COPD, Hypothyroidism, Morbid Obesity presents to ED for evaluation. pw with fever, cough, sob and wheezing --Acute on chronic hypoxic respiratory failure; Oxygen titrated O2 sats to more than 90%, BiPAP as needed, nebulizers, IV steroids, IV antibiotics and supportive care --Acute exacerbation of COPD; with acute bronchitis; continue oxygen support, nebulizers, steroids and antibiotics -pumonary input appreciated -influenza; clinically diagnosed, continue tamiflu --Hypertension; moderate control, Continue current antihypertensives and when necessary medication --Type 2 diabetes mellitus well controlled; Accu-Chek sliding scale coverage and ADA diet and insulin as needed --Hypothyroidism; stable on Synthroid, closely monitor --Anxiety disorder; continue Zoloft --Chronic pain syndrome; continue analgesics, follows at palliative care at [place] --Morbid obesity; BMI 46.6; counseling done, patient may benefit by bariatric surgical evaluation as outpatient upon discharge Once medically stable --Moderate protein calorie malnutrition; supportive care and nutrition supplements --DVT prophylaxis with Lovenox --Full CODE STATUS Deconditioned -obtain PT consult Case management for discharge planning when medically stable; she would prefer to go home than a facility Disposition; follow pulmonary evaluation and recommendations, palliative care DO NOT RESUSCITATE, but wants to be intubated if needed, Case discussed with [facility] personal [phone] History Interval history: Review of systems Constitutional: No fevers, no malaise, no joint pains CVS: No chest pain, no orthopnea, no dyspnea on exertion, no pedal edema GI: No abdominal pain, no diarrhea, no vomiting, no constipation Respiratory: c/o Sob, wheezing and CA Hospitalist Physical - Physical exam Narrative exam: General.: Appears well, no distress, nontoxic, obese HEENT: Moist mucous membranes, extraocular muscles intact, no lymphadenopathy Neck: supple Cardiac: S1-S2 heard Lungs: poor air entry, wheezing, but interval improvement Abdomen: soft , nontender, nondistended, bowel sounds positive Extremities: no edema clubbing or cyanosis Skin: no rash or lesions Neurologic: no gross focal deficits Psych: appropriate behavior, appropriate mood, corporative, judgment intact - Constitutional Vitals: Temp Pulse Resp BP Pulse Ox 97.5 F L 71 24 152/77 96 07/08/17 08:23 07/08/17 09:50 07/08/17 09:50 07/08/17 08:23 07/08/17 09:50 General appearance: Present: mild distress, well-nourished, obese (morbidly obese) Results - Labs CBC & Chem 7: 07/07/17 06:03 07/07/17 06:03 Labs: Laboratory Last Values WBC 11.3 K/mm3 (4.5-11.0) H 07/07/17 06:03 RBC 5.17 M/mm3 (3.65-5.03) H 07/07/17 06:03 Hgb 13.2 gm/dl (10.1-14.3) 07/07/17 06:03 Hct 41.3 % (30.3-42.9) 07/07/17 06:03 MCV 80 fl (79-97) 07/07/17 06:03 MCH 26 pg (28-32) L 07/07/17 06:03 MCHC 32 % (30-34) 07/07/17 06:03 RDW 18.5 % (13.2-15.2) H 07/07/17 06:03 Plt Count 134 K/mm3 (140-440) L 07/07/17 06:03 Lymph % (Auto) 9.8 % (13.4-35.0) L 07/07/17 06:03 [place] % (Auto) 4.8 % (0.0-7.3) 07/07/17 06:03 Eos % (Auto) 0.0 % (0.0-4.3) 07/07/17 06:03 Baso % (Auto) 0.1 % (0.0-1.8) 07/07/17 06:03 Lymph # 1.1 K/mm3 (1.2-5.4) L 07/07/17 06:03 [place] # 0.5 K/mm3 (0.0-0.8) 07/07/17 06:03 Eos # 0.0 K/mm3 (0.0-0.4) 07/07/17 06:03 Baso # 0.0 K/mm3 (0.0-0.1) 07/07/17 06:03 Seg Neutrophils % 85.3 % (40.0-70.0) H 02/06/18 06:03 Seg Neutrophils # 9.6 K/mm3 (1.8-7.7) H 07/07/17 06:03 PT 12.7 Sec. (12.2-14.9) 07/05/17 13:07 INR 0.91 (0.87-1.13) 07/05/17 13:07 APTT 32.6 Sec. (24.2-36.6) 07/05/17 13:07 D-Dimer 264.64 ng/mlDDU (0-234) H 07/05/17 13:07 POC ABG pH 7.336 (7.35-7.45) L 07/05/17 14:36 POC ABG pCO2 68.3 (35-45) H 07/05/17 14:36 POC ABG pO2 79 (80-105) L 07/05/17 14:36 POC ABG HCO3 36.5 07/05/17 14:36 POC ABG Total CO2 39 07/05/17 14:36 POC ABG O2 Sat 94 07/05/17 14:36 POC ABG Base Excess 11 07/05/17 14:36 FiO2 40 % 07/05/17 14:36 Sodium 143 mmol/L (137-145) 07/07/17 06:03 Potassium 3.7 mmol/L (3.6-5.0) 07/07/17 06:03 Chloride 95.7 mmol/L (98-107) L 07/07/17 06:03 Carbon Dioxide 40 mmol/L (22-30) H 07/07/17 06:03 Anion Gap 11 mmol/L 07/07/17 06:03 BUN 17 mg/dL (7-17) 07/07/17 06:03 Creatinine 0.6 mg/dL (0.7-1.2) L 07/07/17 06:03 Estimated GFR > 60 ml/min 07/07/17 06:03 BUN/Creatinine Ratio 28 % 07/07/17 06:03 Glucose 144 mg/dL (65-100) H 07/07/17 06:03 Hemoglobin A1c 5.8 % (4-6) 07/06/17 08:40 Ketones Quantitative Small (Negative) 07/05/17 13:02 Calcium 9.4 mg/dL (8.4-10.2) 07/07/17 06:03 Magnesium 2.50 mg/dL (1.7-2.3) H 07/07/17 06:03 Total Bilirubin 0.80 mg/dL (0.1-1.2) 07/07/17 06:03 Direct Bilirubin < 0.2 mg/dL (0-0.2) 07/07/17 06:03 Indirect Bilirubin 0.6 mg/dL 07/07/17 06:03 AST 15 units/L (5-40) 07/07/17 06:03 ALT 16 units/L (7-56) 07/07/17 06:03 Alkaline Phosphatase 43 units/L (35-129) 07/07/17 06:03 Total Creatine Kinase 27 units/L (30-135) L 07/05/17 13:07 CK-MB (CK-2) 1.4 ng/mL (0.0-4.0) 07/05/17 13:07 CK-MB (CK-2) Rel Index 5.1 (0-4) H 07/05/17 13:07 Troponin T < 0.010 ng/mL (0.00-0.029) 07/05/17 13:07 NT-Pro-B Natriuret Pep 44.53 pg/mL (0-900) 07/05/17 13:07 Total Protein 6.7 g/dL (6.3-8.2) 07/07/17 06:03 Albumin 3.8 g/dL (3.9-5) L 07/07/17 06:03 Albumin/Globulin Ratio 1.3 % 07/07/17 06:03
--- NOTE | 2017-07-08 12:14 | Progress Note ---
Assessment and Plan A/C respiratory failure with exacerbation.Controlled COPD with exacerbation. Slowly improving FUNMI. No fever or additional clinical symptoms AECB, post flu. On antibiotics Obesity Rec Complete treatment with tamiflu. Continuing Rocephin IV Out of bed as tolerated Albuterol/ipratropium every 4-6 hours May be amenable to switch to oral steroids tomorrow morning, depending on patient's status Subjective Date of service: 07/08/17 Interval history: Feeling better today. Less cough and wheezing Objective Vital Signs - 12hr 07/08/17 07/08/17 07/08/17 00:58 02:33 04:27 Temperature 97.9 F 98.4 F Pulse Rate 66 62 70 Pulse Rate [ Anterior Bilateral Throughout] Respiratory 18 18 24 Rate Respiratory Rate [Anterior Bilateral Throughout] Blood Pressure 152/73 152/107 [Left] O2 Sat by Pulse 94 97 93 Oximetry 07/08/17 07/08/17 07/08/17 08:23 09:50 11:41 Temperature 97.5 F L 97.6 F Pulse Rate 68 69 Pulse Rate [ 71 Anterior Bilateral Throughout] Respiratory 20 20 Rate Respiratory 24 Rate [Anterior Bilateral Throughout] Blood Pressure 152/77 155/67 [Left] O2 Sat by Pulse 94 96 93 Oximetry Constitutional: no acute distress, alert, other (morbid obese) Eyes: non-icteric ENT: oropharynx moist, oropharynx erythematous Neck: supple, no JVD Ascultation: Bilateral: wheezes (very mild) Cardiovascular: regular rate and rhythm Gastrointestinal: normoactive bowel sounds, non-distended Integumentary: normal Extremities: no cyanosis Neurologic: normal mental status, non-focal exam, CN II-XII normal, motor strength normal and Psychiatric: mood appropriate, affect normal CBC and BMP: 07/07/17 06:03 07/07/17 06:03 ABG, PT/INR, D-dimer: ABG POC ABG pH 7.336 (7.35-7.45) L 07/05/17 14:36 POC ABG pCO2 68.3 (35-45) H 07/05/17 14:36 POC ABG pO2 79 (80-105) L 07/05/17 14:36 POC ABG HCO3 36.5 07/05/17 14:36 POC ABG Total CO2 39 07/05/17 14:36 POC ABG O2 Sat 94 07/05/17 14:36 PT/INR, D-dimer PT 12.7 Sec. (12.2-14.9) 07/05/17 13:07 INR 0.91 (0.87-1.13) 07/05/17 13:07 D-Dimer 264.64 ng/mlDDU (0-234) H 07/05/17 13:07 Abnormal lab findings: Abnormal Labs 07/05/17 07/05/17 07/05/17 12:20 12:20 13:07 WBC RBC 5.42 H MCV 78 L MCH 26 L RDW 19.2 H Plt Count 120 L Lymph % (Auto) 10.1 L Lymph # 0.7 L Seg Neutrophils % 86.1 H Seg Neutrophils # D-Dimer POC ABG pH POC ABG pCO2 POC ABG pO2 Potassium 3.2 L Chloride 91.7 L Carbon Dioxide 32 H BUN 6 L Creatinine 0.4 L Glucose 132 H Magnesium Total Creatine Kinase 27 L CK-MB (CK-2) Rel Index 5.1 H Albumin 3.4 L 07/05/17 07/05/17 07/05/17 13:07 13:07 14:36 WBC RBC MCV MCH RDW Plt Count Lymph % (Auto) Lymph # Seg Neutrophils % Seg Neutrophils # D-Dimer 264.64 H POC ABG pH 7.336 L POC ABG pCO2 68.3 H POC ABG pO2 79 L Potassium Chloride Carbon Dioxide BUN Creatinine Glucose Magnesium 2.50 H Total Creatine Kinase CK-MB (CK-2) Rel Index Albumin 07/06/17 07/07/17 07/07/17 08:40 06:03 06:03 WBC 11.3 H RBC 5.17 H MCV MCH 26 L RDW 18.5 H Plt Count 134 L Lymph % (Auto) 9.8 L Lymph # 1.1 L Seg Neutrophils % 85.3 H Seg Neutrophils # 9.6 H D-Dimer POC ABG pH POC ABG pCO2 POC ABG pO2 Potassium Chloride 96.3 L 95.7 L Carbon Dioxide 37 H 40 H BUN Creatinine 0.5 L 0.6 L Glucose 156 H 144 H Magnesium 2.50 H Total Creatine Kinase CK-MB (CK-2) Rel Index Albumin 3.8 L
[2017-07-08] MEDS: SINGULAIR PO SCH (18:17)
[2017-07-08] MEDS: LOVENOX SUB-Q SCH (22:55)
[2017-07-09] MEDS: TESSALON PERLES PO SCH ×3 (06:31→21:49)
[2017-07-09] MEDS: SYNTHROID PO SCH (06:31)
[2017-07-09] MEDS: BROVANA NEBU IH SCH ×2 (08:54→21:20)
[2017-07-09] MEDS: PULMICORT IH SCH ×2 (08:54→21:20)
[2017-07-09] MEDS: ZOLOFT PO SCH (09:49)
[2017-07-09] MEDS: TAMIFLU PO SCH ×2 (09:50→21:48)
[2017-07-09] MEDS: CLARITIN PO SCH (09:50)
[2017-07-09] MEDS: PROTONIX PO SCH (09:50)
[2017-07-09] MEDS: SPIRIVA IH SCH (11:01)
--- NOTE | 2017-07-09 12:20 | Progress Note ---
Assessment and Plan A/C respiratory failure with exacerbation.Controlled COPD with exacerbation. Improved, minimal wheezing FUNMI. No fever AECB, post flu. On antibiotics Obesity Rec Complete treatment with tamiflu Out of bed as tolerated Albuterol/ipratropium every 4-6 hours Ambulate patient and monitor oximetry. Add portable oxygen 2 L/m if oximetry below 89% on room air. Update influenza and pneumonia vaccination, if not completed already. Candidate for pulmonary rehabilitation Outpatient pulmonary evaluation, PFT workup for COPD severity stratification Inhaler therapy including LAMA, LABA/ICS therapy, per GOLD guidelines. Recommend Symbicort 160/4.5 2 inhalations twice a day, Spiriva respihaler 1-2 inhalations daily and Singulair 10 mg daily at bedtime Prednisone 30 mg daily with 7 days tapering down Nutritional support, weight reduction diet. Subjective Date of service: 07/09/17 Interval history: Feels much better today. No fever,able to walk OOB Objective Vital Signs - 12hr 07/09/17 07/09/17 07/09/17 00:23 01:16 04:38 Temperature 98.4 F 97.3 F L Pulse Rate 69 71 65 Respiratory 22 22 22 Rate Blood Pressure 159/83 141/70 O2 Sat by Pulse 94 94 94 Oximetry 07/09/17 07:56 Temperature 97.8 F Pulse Rate 67 Respiratory 20 Rate Blood Pressure 177/68 O2 Sat by Pulse 91 Oximetry Constitutional: no acute distress, alert, other (morbid obese) Eyes: non-icteric ENT: oropharynx moist, oropharynx erythematous Neck: supple, no JVD Ascultation: Bilateral: clear, wheezes (very mild) Cardiovascular: regular rate and rhythm Gastrointestinal: normoactive bowel sounds, non-distended Integumentary: normal Extremities: no cyanosis Neurologic: normal mental status, non-focal exam, CN II-XII normal, motor strength normal and Psychiatric: mood appropriate, affect normal CBC and BMP: 07/07/17 06:03 07/07/17 06:03 ABG, PT/INR, D-dimer: ABG POC ABG pH 7.336 (7.35-7.45) L 07/05/17 14:36 POC ABG pCO2 68.3 (35-45) H 07/05/17 14:36 POC ABG pO2 79 (80-105) L 07/05/17 14:36 POC ABG HCO3 36.5 07/05/17 14:36 POC ABG Total CO2 39 07/05/17 14:36 POC ABG O2 Sat 94 07/05/17 14:36 PT/INR, D-dimer PT 12.7 Sec. (12.2-14.9) 07/05/17 13:07 INR 0.91 (0.87-1.13) 07/05/17 13:07 D-Dimer 264.64 ng/mlDDU (0-234) H 07/05/17 13:07 Abnormal lab findings: Abnormal Labs 07/05/17 07/05/17 07/05/17 12:20 12:20 13:07 WBC RBC 5.42 H MCV 78 L MCH 26 L RDW 19.2 H Plt Count 120 L Lymph % (Auto) 10.1 L Lymph # 0.7 L Seg Neutrophils % 86.1 H Seg Neutrophils # D-Dimer POC ABG pH POC ABG pCO2 POC ABG pO2 Potassium 3.2 L Chloride 91.7 L Carbon Dioxide 32 H BUN 6 L Creatinine 0.4 L Glucose 132 H Magnesium Total Creatine Kinase 27 L CK-MB (CK-2) Rel Index 5.1 H Albumin 3.4 L 07/05/17 07/05/17 07/05/17 13:07 13:07 14:36 WBC RBC MCV MCH RDW Plt Count Lymph % (Auto) Lymph # Seg Neutrophils % Seg Neutrophils # D-Dimer 264.64 H POC ABG pH 7.336 L POC ABG pCO2 68.3 H POC ABG pO2 79 L Potassium Chloride Carbon Dioxide BUN Creatinine Glucose Magnesium 2.50 H Total Creatine Kinase CK-MB (CK-2) Rel Index Albumin 07/06/17 07/07/17 07/07/17 08:40 06:03 06:03 WBC 11.3 H RBC 5.17 H MCV MCH 26 L RDW 18.5 H Plt Count 134 L Lymph % (Auto) 9.8 L Lymph # 1.1 L Seg Neutrophils % 85.3 H Seg Neutrophils # 9.6 H D-Dimer POC ABG pH POC ABG pCO2 POC ABG pO2 Potassium Chloride 96.3 L 95.7 L Carbon Dioxide 37 H 40 H BUN Creatinine 0.5 L 0.6 L Glucose 156 H 144 H Magnesium 2.50 H Total Creatine Kinase CK-MB (CK-2) Rel Index Albumin 3.8 L
--- NOTE | 2017-07-09 16:38 | Progress Note ---
Assessment and Plan Assessment and plan: 61 YO Female with HTN, DM, COPD, Hypothyroidism, Morbid Obesity presents to ED for evaluation. pw with fever, cough, sob and wheezing --Acute on chronic hypoxic respiratory failure; Oxygen titrated O2 sats to more than 90%, BiPAP as needed, nebulizers, IV steroids, IV antibiotics and supportive care --Acute exacerbation of COPD; with acute bronchitis; continue oxygen support, nebulizers, steroids and antibiotics -pumonary input appreciated -influenza; clinically diagnosed, continue tamiflu --Hypertension; moderate control, Continue current antihypertensives and when necessary medication --Type 2 diabetes mellitus well controlled; Accu-Chek sliding scale coverage and ADA diet and insulin as needed --Hypothyroidism; stable on Synthroid, closely monitor --Anxiety disorder; continue Zoloft --Chronic pain syndrome; continue analgesics, follows at palliative care at [facility] --Morbid obesity; BMI 46.6; counseling done, patient may benefit by bariatric surgical evaluation as outpatient upon discharge Once medically stable --Moderate protein calorie malnutrition; supportive care and nutrition supplements --DVT prophylaxis with Lovenox --Full CODE STATUS Deconditioned -obtain PT consult Case management for discharge planning when medically stable; she would prefer to go home than a facility Disposition; follow pulmonary evaluation and recommendations, palliative care DO NOT RESUSCITATE, but wants to be intubated if needed, Case discussed with [facility] personal [phone] History Interval history: Review of systems Constitutional: No fevers, no malaise, no joint pains CVS: No chest pain, no orthopnea, no dyspnea on exertion, no pedal edema GI: No abdominal pain, no diarrhea, no vomiting, no constipation Respiratory: c/o Sob, wheezing and CA Hospitalist Physical - Physical exam Narrative exam: General.: Appears well, no distress, nontoxic, obese HEENT: Moist mucous membranes, extraocular muscles intact, no lymphadenopathy Neck: supple Cardiac: S1-S2 heard Lungs: poor air entry, wheezing, but interval improvement Abdomen: soft , nontender, nondistended, bowel sounds positive Extremities: no edema clubbing or cyanosis Skin: no rash or lesions Neurologic: no gross focal deficits Psych: appropriate behavior, appropriate mood, corporative, judgment intact - Constitutional Vitals: Temp Pulse Resp BP Pulse Ox 97.8 F 71 20 157/64 92 07/09/17 12:38 07/09/17 12:38 07/09/17 12:38 07/09/17 12:38 07/09/17 12:38 General appearance: Present: mild distress, well-nourished, obese (morbidly obese) Results - Labs CBC & Chem 7: 07/07/17 06:03 07/07/17 06:03 Labs: Laboratory Last Values WBC 11.3 K/mm3 (4.5-11.0) H 07/07/17 06:03 RBC 5.17 M/mm3 (3.65-5.03) H 07/07/17 06:03 Hgb 13.2 gm/dl (10.1-14.3) 07/07/17 06:03 Hct 41.3 % (30.3-42.9) 07/07/17 06:03 MCV 80 fl (79-97) 07/07/17 06:03 MCH 26 pg (28-32) L 07/07/17 06:03 MCHC 32 % (30-34) 07/07/17 06:03 RDW 18.5 % (13.2-15.2) H 07/07/17 06:03 Plt Count 134 K/mm3 (140-440) L 07/07/17 06:03 Lymph % (Auto) 9.8 % (13.4-35.0) L 07/07/17 06:03 [place] % (Auto) 4.8 % (0.0-7.3) 07/07/17 06:03 Eos % (Auto) 0.0 % (0.0-4.3) 07/07/17 06:03 Baso % (Auto) 0.1 % (0.0-1.8) 07/07/17 06:03 Lymph # 1.1 K/mm3 (1.2-5.4) L 07/07/17 06:03 [place] # 0.5 K/mm3 (0.0-0.8) 07/07/17 06:03 Eos # 0.0 K/mm3 (0.0-0.4) 07/07/17 06:03 Baso # 0.0 K/mm3 (0.0-0.1) 07/07/17 06:03 Seg Neutrophils % 85.3 % (40.0-70.0) H 07/07/17 06:03 Seg Neutrophils # 9.6 K/mm3 (1.8-7.7) H 07/07/17 06:03 PT 12.7 Sec. (12.2-14.9) 07/05/17 13:07 INR 0.91 (0.87-1.13) 07/05/17 13:07 APTT 32.6 Sec. (24.2-36.6) 07/05/17 13:07 D-Dimer 264.64 ng/mlDDU (0-234) H 07/05/17 13:07 POC ABG pH 7.336 (7.35-7.45) L 07/05/17 14:36 POC ABG pCO2 68.3 (35-45) H 07/05/17 14:36 POC ABG pO2 79 (80-105) L 07/05/17 14:36 POC ABG HCO3 36.5 07/05/17 14:36 POC ABG Total CO2 39 07/05/17 14:36 POC ABG O2 Sat 94 07/05/17 14:36 POC ABG Base Excess 11 07/05/17 14:36 FiO2 40 % 07/05/17 14:36 Sodium 143 mmol/L (137-145) 07/07/17 06:03 Potassium 3.7 mmol/L (3.6-5.0) 07/07/17 06:03 Chloride 95.7 mmol/L (98-107) L 07/07/17 06:03 Carbon Dioxide 40 mmol/L (22-30) H 07/07/17 06:03 Anion Gap 11 mmol/L 07/07/17 06:03 BUN 17 mg/dL (7-17) 07/07/17 06:03 Creatinine 0.6 mg/dL (0.7-1.2) L 07/07/17 06:03 Estimated GFR > 60 ml/min 07/07/17 06:03 BUN/Creatinine Ratio 28 % 07/07/17 06:03 Glucose 144 mg/dL (65-100) H 07/07/17 06:03 Hemoglobin A1c 5.8 % (4-6) 07/06/17 08:40 Ketones Quantitative Small (Negative) 07/05/17 13:02 Calcium 9.4 mg/dL (8.4-10.2) 07/07/17 06:03 Magnesium 2.50 mg/dL (1.7-2.3) H 07/07/17 06:03 Total Bilirubin 0.80 mg/dL (0.1-1.2) 07/07/17 06:03 Direct Bilirubin < 0.2 mg/dL (0-0.2) 07/07/17 06:03 Indirect Bilirubin 0.6 mg/dL 07/07/17 06:03 AST 15 units/L (5-40) 07/07/17 06:03 ALT 16 units/L (7-56) 07/07/17 06:03 Alkaline Phosphatase 43 units/L (35-129) 07/07/17 06:03 Total Creatine Kinase 27 units/L (30-135) L 07/05/17 13:07 CK-MB (CK-2) 1.4 ng/mL (0.0-4.0) 07/05/17 13:07 CK-MB (CK-2) Rel Index 5.1 (0-4) H 07/05/17 13:07 Troponin T < 0.010 ng/mL (0.00-0.029) 07/05/17 13:07 NT-Pro-B Natriuret Pep 44.53 pg/mL (0-900) 07/05/17 13:07 Total Protein 6.7 g/dL (6.3-8.2) 07/07/17 06:03 Albumin 3.8 g/dL (3.9-5) L 07/07/17 06:03 Albumin/Globulin Ratio 1.3 % 07/07/17 06:03
[2017-07-09] MEDS: SINGULAIR PO SCH (17:36)
[2017-07-09] MEDS: LOVENOX SUB-Q SCH (21:48)
[2017-07-10] MEDS: TESSALON PERLES PO SCH ×3 (05:27→22:12)
[2017-07-10] MEDS: SYNTHROID PO SCH (05:27)
[2017-07-10] MEDS: BROVANA NEBU IH SCH ×2 (07:22→21:05)
[2017-07-10] MEDS: PULMICORT IH SCH ×2 (07:22→21:05)
[2017-07-10] MEDS: SPIRIVA IH SCH ×2 (07:44→09:03)
[2017-07-10] MEDS: PROTONIX PO SCH (11:03)
[2017-07-10] MEDS: TAMIFLU PO SCH (11:03)
[2017-07-10] MEDS: ZOLOFT PO SCH (11:03)
[2017-07-10] MEDS: CLARITIN PO SCH (11:03)
--- NOTE | 2017-07-10 11:20 | Progress Note ---
Assessment and Plan - Patient Problems (1) Acute respiratory failure Current Visit: Yes Status: Acute Qualifiers: Respiratory failure complication: hypoxia Qualified Code(s): J96.01 - Acute respiratory failure with hypoxia (2) Diabetes Current Visit: Yes Status: Acute (3) HTN (hypertension) Current Visit: Yes Status: Acute Qualifiers: Hypertension type: essential hypertension Qualified Code(s): I10 - Essential (primary) hypertension (4) Bronchitis Current Visit: No Status: Acute (5) COPD exacerbation Current Visit: No Status: Acute Subjective Interval history: doing better Objective Vital Signs - 12hr 07/09/17 07/09/17 07/10/17 23:29 23:55 00:07 Temperature Pulse Rate 71 76 69 Pulse Rate [ Anterior Bilateral Throughout] Respiratory 20 Rate Respiratory Rate [Anterior Bilateral Throughout] Blood Pressure 150/64 Blood Pressure [Left] O2 Sat by Pulse 95 90 Oximetry 07/10/17 07/10/17 07/10/17 00:57 04:07 05:20 Temperature 99 F 98.9 F Pulse Rate 67 68 69 Pulse Rate [ Anterior Bilateral Throughout] Respiratory 20 18 Rate Respiratory Rate [Anterior Bilateral Throughout] Blood Pressure 145/63 Blood Pressure 150/64 145/63 [Left] O2 Sat by Pulse 90 95 94 Oximetry 07/10/17 07/10/17 07/10/17 07:24 07:38 07:59 Temperature 98.6 F Pulse Rate Pulse Rate [ 66 68 Anterior Bilateral Throughout] Respiratory 21 Rate Respiratory 20 18 Rate [Anterior Bilateral Throughout] Blood Pressure 146/66 Blood Pressure [Left] O2 Sat by Pulse 96 Oximetry 07/10/17 07/10/17 08:13 08:58 Temperature 98.8 F 98.8 F Pulse Rate 69 74 Pulse Rate [ Anterior Bilateral Throughout] Respiratory 20 20 Rate Respiratory Rate [Anterior Bilateral Throughout] Blood Pressure 151/70 Blood Pressure 151/70 [Left] O2 Sat by Pulse 91 91 Oximetry Constitutional: no acute distress, alert, other (morbid obese) Eyes: non-icteric ENT: oropharynx moist, oropharynx erythematous Neck: supple, no JVD Ascultation: Bilateral: clear, wheezes (very mild), rhonchi Cardiovascular: regular rate and rhythm Gastrointestinal: normoactive bowel sounds, non-distended Integumentary: normal Extremities: no cyanosis Neurologic: normal mental status, non-focal exam, CN II-XII normal, motor strength normal and Psychiatric: mood appropriate, affect normal CBC and BMP: 07/07/17 06:03 07/07/17 06:03 ABG, PT/INR, D-dimer: ABG POC ABG pH 7.336 (7.35-7.45) L 07/05/17 14:36 POC ABG pCO2 68.3 (35-45) H 07/05/17 14:36 POC ABG pO2 79 (80-105) L 07/05/17 14:36 POC ABG HCO3 36.5 07/05/17 14:36 POC ABG Total CO2 39 07/05/17 14:36 POC ABG O2 Sat 94 07/05/17 14:36 PT/INR, D-dimer PT 12.7 Sec. (12.2-14.9) 07/05/17 13:07 INR 0.91 (0.87-1.13) 07/05/17 13:07 D-Dimer 264.64 ng/mlDDU (0-234) H 07/05/17 13:07 Abnormal lab findings: Abnormal Labs 07/05/17 07/05/17 07/05/17 12:20 12:20 13:07 WBC RBC 5.42 H MCV 78 L MCH 26 L RDW 19.2 H Plt Count 120 L Lymph % (Auto) 10.1 L Lymph # 0.7 L Seg Neutrophils % 86.1 H Seg Neutrophils # D-Dimer POC ABG pH POC ABG pCO2 POC ABG pO2 Potassium 3.2 L Chloride 91.7 L Carbon Dioxide 32 H BUN 6 L Creatinine 0.4 L Glucose 132 H Magnesium Total Creatine Kinase 27 L CK-MB (CK-2) Rel Index 5.1 H Albumin 3.4 L 07/05/17 07/05/17 07/05/17 13:07 13:07 14:36 WBC RBC MCV MCH RDW Plt Count Lymph % (Auto) Lymph # Seg Neutrophils % Seg Neutrophils # D-Dimer 264.64 H POC ABG pH 7.336 L POC ABG pCO2 68.3 H POC ABG pO2 79 L Potassium Chloride Carbon Dioxide BUN Creatinine Glucose Magnesium 2.50 H Total Creatine Kinase CK-MB (CK-2) Rel Index Albumin 07/06/17 07/07/17 07/07/17 08:40 06:03 06:03 WBC 11.3 H RBC 5.17 H MCV MCH 26 L RDW 18.5 H Plt Count 134 L Lymph % (Auto) 9.8 L Lymph # 1.1 L Seg Neutrophils % 85.3 H Seg Neutrophils # 9.6 H D-Dimer POC ABG pH POC ABG pCO2 POC ABG pO2 Potassium Chloride 96.3 L 95.7 L Carbon Dioxide 37 H 40 H BUN Creatinine 0.5 L 0.6 L Glucose 156 H 144 H Magnesium 2.50 H Total Creatine Kinase CK-MB (CK-2) Rel Index Albumin 3.8 L
[2017-07-10] MEDS: SINGULAIR PO SCH (18:16)
--- NOTE | 2017-07-10 21:33 | Progress Note ---
Hospitalist Physical - Constitutional Vitals: Temp Pulse Resp BP Pulse Ox 99.4 F 74 18 150/65 95 07/10/17 20:19 07/10/17 21:05 07/10/17 21:05 07/10/17 20:19 07/10/17 21:16 General appearance: Present: mild distress, well-nourished, obese (morbidly obese) Results - Labs CBC & Chem 7: 07/07/17 06:03 07/07/17 06:03 Labs: Laboratory Last Values WBC 11.3 K/mm3 (4.5-11.0) H 07/07/17 06:03 RBC 5.17 M/mm3 (3.65-5.03) H 07/07/17 06:03 Hgb 13.2 gm/dl (10.1-14.3) 07/07/17 06:03 Hct 41.3 % (30.3-42.9) 07/07/17 06:03 MCV 80 fl (79-97) 07/07/17 06:03 MCH 26 pg (28-32) L 07/07/17 06:03 MCHC 32 % (30-34) 07/07/17 06:03 RDW 18.5 % (13.2-15.2) H 07/07/17 06:03 Plt Count 134 K/mm3 (140-440) L 07/07/17 06:03 Lymph % (Auto) 9.8 % (13.4-35.0) L 07/07/17 06:03 [place] % (Auto) 4.8 % (0.0-7.3) 07/07/17 06:03 Eos % (Auto) 0.0 % (0.0-4.3) 07/07/17 06:03 Baso % (Auto) 0.1 % (0.0-1.8) 07/07/17 06:03 Lymph # 1.1 K/mm3 (1.2-5.4) L 07/07/17 06:03 [place] # 0.5 K/mm3 (0.0-0.8) 07/07/17 06:03 Eos # 0.0 K/mm3 (0.0-0.4) 07/07/17 06:03 Baso # 0.0 K/mm3 (0.0-0.1) 07/07/17 06:03 Seg Neutrophils % 85.3 % (40.0-70.0) H 07/07/17 06:03 Seg Neutrophils # 9.6 K/mm3 (1.8-7.7) H 07/07/17 06:03 PT 12.7 Sec. (12.2-14.9) 07/05/17 13:07 INR 0.91 (0.87-1.13) 07/05/17 13:07 APTT 32.6 Sec. (24.2-36.6) 07/05/17 13:07 D-Dimer 264.64 ng/mlDDU (0-234) H 07/05/17 13:07 POC ABG pH 7.336 (7.35-7.45) L 07/05/17 14:36 POC ABG pCO2 68.3 (35-45) H 07/05/17 14:36 POC ABG pO2 79 (80-105) L 07/05/17 14:36 POC ABG HCO3 36.5 07/05/17 14:36 POC ABG Total CO2 39 07/05/17 14:36 POC ABG O2 Sat 94 07/05/17 14:36 POC ABG Base Excess 11 07/05/17 14:36 FiO2 40 % 07/05/17 14:36 Sodium 143 mmol/L (137-145) 07/07/17 06:03 Potassium 3.7 mmol/L (3.6-5.0) 07/07/17 06:03 Chloride 95.7 mmol/L (98-107) L 07/07/17 06:03 Carbon Dioxide 40 mmol/L (22-30) H 07/07/17 06:03 Anion Gap 11 mmol/L 07/07/17 06:03 BUN 17 mg/dL (7-17) 07/07/17 06:03 Creatinine 0.6 mg/dL (0.7-1.2) L 07/07/17 06:03 Estimated GFR > 60 ml/min 07/07/17 06:03 BUN/Creatinine Ratio 28 % 07/07/17 06:03 Glucose 144 mg/dL (65-100) H 07/07/17 06:03 Hemoglobin A1c 5.8 % (4-6) 07/06/17 08:40 Ketones Quantitative Small (Negative) 07/05/17 13:02 Calcium 9.4 mg/dL (8.4-10.2) 07/07/17 06:03 Magnesium 2.50 mg/dL (1.7-2.3) H 07/07/17 06:03 Total Bilirubin 0.80 mg/dL (0.1-1.2) 07/07/17 06:03 Direct Bilirubin < 0.2 mg/dL (0-0.2) 07/07/17 06:03 Indirect Bilirubin 0.6 mg/dL 07/07/17 06:03 AST 15 units/L (5-40) 07/07/17 06:03 ALT 16 units/L (7-56) 07/07/17 06:03 Alkaline Phosphatase 43 units/L (35-129) 07/07/17 06:03 Total Creatine Kinase 27 units/L (30-135) L 07/05/17 13:07 CK-MB (CK-2) 1.4 ng/mL (0.0-4.0) 07/05/17 13:07 CK-MB (CK-2) Rel Index 5.1 (0-4) H 07/05/17 13:07 Troponin T < 0.010 ng/mL (0.00-0.029) 07/05/17 13:07 NT-Pro-B Natriuret Pep 44.53 pg/mL (0-900) 07/05/17 13:07 Total Protein 6.7 g/dL (6.3-8.2) 07/07/17 06:03 Albumin 3.8 g/dL (3.9-5) L 07/07/17 06:03 Albumin/Globulin Ratio 1.3 % 07/07/17 06:03
[2017-07-10] MEDS: LOVENOX SUB-Q SCH (22:11)
[2017-07-10] MEDS ORDERED: ROBITUSSIN AC PO PRN (23:01)
[2017-07-11] MEDS: TESSALON PERLES PO SCH (06:00)
[2017-07-11] MEDS: SYNTHROID PO SCH (06:00)
--- NOTE | 2017-07-11 08:50 | Progress Note ---
Hospitalist Physical - Constitutional Vitals: Temp Pulse Resp BP Pulse Ox 98.3 F 70 18 140/59 88 07/11/17 05:26 07/11/17 05:26 07/11/17 05:26 07/11/17 05:26 07/11/17 05:26 General appearance: Present: mild distress, well-nourished, obese (morbidly obese) Results - Labs CBC & Chem 7: 07/07/17 06:03 07/07/17 06:03 Labs: Laboratory Last Values WBC 11.3 K/mm3 (4.5-11.0) H 07/07/17 06:03 RBC 5.17 M/mm3 (3.65-5.03) H 07/07/17 06:03 Hgb 13.2 gm/dl (10.1-14.3) 07/07/17 06:03 Hct 41.3 % (30.3-42.9) 07/07/17 06:03 MCV 80 fl (79-97) 07/07/17 06:03 MCH 26 pg (28-32) L 07/07/17 06:03 MCHC 32 % (30-34) 07/07/17 06:03 RDW 18.5 % (13.2-15.2) H 07/07/17 06:03 Plt Count 134 K/mm3 (140-440) L 07/07/17 06:03 Lymph % (Auto) 9.8 % (13.4-35.0) L 07/07/17 06:03 [place] % (Auto) 4.8 % (0.0-7.3) 07/07/17 06:03 Eos % (Auto) 0.0 % (0.0-4.3) 07/07/17 06:03 Baso % (Auto) 0.1 % (0.0-1.8) 07/07/17 06:03 Lymph # 1.1 K/mm3 (1.2-5.4) L 07/07/17 06:03 [place] # 0.5 K/mm3 (0.0-0.8) 07/07/17 06:03 Eos # 0.0 K/mm3 (0.0-0.4) 07/07/17 06:03 Baso # 0.0 K/mm3 (0.0-0.1) 07/07/17 06:03 Seg Neutrophils % 85.3 % (40.0-70.0) H 07/07/17 06:03 Seg Neutrophils # 9.6 K/mm3 (1.8-7.7) H 07/07/17 06:03 PT 12.7 Sec. (12.2-14.9) 07/05/17 13:07 INR 0.91 (0.87-1.13) 07/05/17 13:07 APTT 32.6 Sec. (24.2-36.6) 07/05/17 13:07 D-Dimer 264.64 ng/mlDDU (0-234) H 07/05/17 13:07 POC ABG pH 7.336 (7.35-7.45) L 07/05/17 14:36 POC ABG pCO2 68.3 (35-45) H 07/05/17 14:36 POC ABG pO2 79 (80-105) L 07/05/17 14:36 POC ABG HCO3 36.5 07/05/17 14:36 POC ABG Total CO2 39 07/05/17 14:36 POC ABG O2 Sat 94 07/05/17 14:36 POC ABG Base Excess 11 07/05/17 14:36 FiO2 40 % 07/05/17 14:36 Sodium 143 mmol/L (137-145) 07/07/17 06:03 Potassium 3.7 mmol/L (3.6-5.0) 07/07/17 06:03 Chloride 95.7 mmol/L (98-107) L 07/07/17 06:03 Carbon Dioxide 40 mmol/L (22-30) H 07/07/17 06:03 Anion Gap 11 mmol/L 07/07/17 06:03 BUN 17 mg/dL (7-17) 07/07/17 06:03 Creatinine 0.6 mg/dL (0.7-1.2) L 07/07/17 06:03 Estimated GFR > 60 ml/min 07/07/17 06:03 BUN/Creatinine Ratio 28 % 07/07/17 06:03 Glucose 144 mg/dL (65-100) H 07/07/17 06:03 Hemoglobin A1c 5.8 % (4-6) 07/06/17 08:40 Ketones Quantitative Small (Negative) 07/05/17 13:02 Calcium 9.4 mg/dL (8.4-10.2) 07/07/17 06:03 Magnesium 2.50 mg/dL (1.7-2.3) H 07/07/17 06:03 Total Bilirubin 0.80 mg/dL (0.1-1.2) 07/07/17 06:03 Direct Bilirubin < 0.2 mg/dL (0-0.2) 07/07/17 06:03 Indirect Bilirubin 0.6 mg/dL 07/07/17 06:03 AST 15 units/L (5-40) 07/07/17 06:03 ALT 16 units/L (7-56) 07/07/17 06:03 Alkaline Phosphatase 43 units/L (35-129) 07/07/17 06:03 Total Creatine Kinase 27 units/L (30-135) L 07/05/17 13:07 CK-MB (CK-2) 1.4 ng/mL (0.0-4.0) 07/05/17 13:07 CK-MB (CK-2) Rel Index 5.1 (0-4) H 07/05/17 13:07 Troponin T < 0.010 ng/mL (0.00-0.029) 07/05/17 13:07 NT-Pro-B Natriuret Pep 44.53 pg/mL (0-900) 07/05/17 13:07 Total Protein 6.7 g/dL (6.3-8.2) 07/07/17 06:03 Albumin 3.8 g/dL (3.9-5) L 07/07/17 06:03 Albumin/Globulin Ratio 1.3 % 07/07/17 06:03
[2017-07-11] MEDS: PULMICORT IH SCH (08:51)
[2017-07-11] MEDS: BROVANA NEBU IH SCH (08:51)
[2017-07-11] MEDS: SPIRIVA IH SCH (09:17)
--- NOTE | 2017-07-11 11:04 | Discharge Summary ---
Providers - Providers Date of Admission: 07/05/17 13:01 Attending physician: RYAN JONES MD 07/05/17 14:41 Consult to Physician [CONS] Routine Consulting Provider: JOLANTA NEVAREZ Reason For Exam: resp failure Place consult to:: Dr. Nevarez Notified:: Answering Service Phone number called:: [phone] Was contact made?: Yes If yes, spoke with:: Anshu Time called:: 05:30 07/07/17 07:06 Consult to Wound/ET Nurse [CONS] Routine Reason For Exam: wound eval 07/09/17 16:33 Physical Therapy Evaluation and Treat [CONS] Routine Comment: Reason For Exam: debility Primary care physician: TRACEY SELF Hospitalization Condition: Stable Hospital course: 61 YO Female with HTN, DM, COPD, Hypothyroidism, Morbid Obesity presents to ED for evaluation. pw with fever, cough, sob and wheezing --Acute on chronic hypoxic respiratory failure; Oxygen titrated O2 sats to more than 90%, BiPAP as needed, nebulizers, IV steroids, IV antibiotics and supportive care --Acute exacerbation of COPD; with acute bronchitis; continue oxygen support, nebulizers, steroids and antibiotics -pumonary input appreciated -influenza; clinically diagnosed, continue tamiflu --Hypertension; moderate control, Continue current antihypertensives and when necessary medication --Type 2 diabetes mellitus well controlled; Accu-Chek sliding scale coverage and ADA diet and insulin as needed --Hypothyroidism; stable on Synthroid, closely monitor --Anxiety disorder; continue Zoloft --Chronic pain syndrome; continue analgesics, follows at palliative care at [facility] --Morbid obesity; BMI 46.6; counseling done, patient may benefit by bariatric surgical evaluation as outpatient upon discharge Once medically stable --Moderate protein calorie malnutrition; supportive care and nutrition supplements --DVT prophylaxis with Lovenox --Full CODE STATUS Deconditioned -obtain PT consult Case management for discharge planning when medically stable; she would prefer to go home than a facility Disposition; follow pulmonary evaluation and recommendations, palliative care DO NOT RESUSCITATE, but wants to be intubated if needed, Case discussed with [facility] personal [phone] Disposition: -01 TO HOME OR SELFCARE Time spent for discharge: 33 minutes Core Measure Documentation - Palliative Care Palliative Care/ Comfort Measures: Palliative Care/Comfort Measures - Core Measures Any of the following diagnoses?: none Exam - Physical Exam Narrative exam: General.: Appears well, no distress, nontoxic, obese HEENT: Moist mucous membranes, extraocular muscles intact, no lymphadenopathy Neck: supple Cardiac: S1-S2 heard Lungs: CTA BL Abdomen: soft , nontender, nondistended, bowel sounds positive Extremities: no edema clubbing or cyanosis Skin: no rash or lesions Neurologic: no gross focal deficits Psych: appropriate behavior, appropriate mood, corporative, judgment intact - Constitutional Vitals: Temp Pulse Resp BP Pulse Ox 98.3 F 75 18 140/59 88 07/11/17 05:26 07/11/17 08:50 07/11/17 05:26 07/11/17 05:26 07/11/17 05:26 Plan Follow up with: PRIMARY CARE, [Referring] - 3-5 Days Prescriptions: Benzonatate [Tessalon Perles] 100 mg PO Q8HR #30 capsule Loratadine [Claritin] 10 mg PO QDAY #30 tablet Mometasone/Formoterol [Dulera 200 Mcg/5 Mcg Inhaler] 2 puff IH BID #1 hfa.aer.ad Montelukast [Singulair] 10 mg PO QPM #30 tablet Morphine [Morphine ORAL SOLN 10 MG/5 ML] 5 mg PO Q4H PRN #120 ml PRN Reason: Pain , Severe (7-10) Omeprazole Magnesium [PriLOSEC Otc] 20 mg PO QDAY #30 tablet. predniSONE [Deltasone] 10 mg PO .TAPER #48 tab
[2017-07-11] MEDS: ZOLOFT PO SCH (12:03)
[2017-07-11] MEDS: CLARITIN PO SCH (12:04)
[2017-07-11] MEDS: PROTONIX PO SCH (12:04)
[2017-07-11 12:56] VITALS: BP 148/62
== END 2017-07-11 13:23 | disposition home or self-care (01) | DRG 193 ==
LOC: ED 11:24 → 3A 13:01 → CC1 17:06 → 4A 07-06 16:46
PROVIDERS: ADMIT Internal Medicine; ATTEND Internal Medicine
PROC: 4A033R1 Measurement of Arterial Saturation, Peripheral, Percutaneous Approach (ICD-10-PCS; principal; 2017-07-05)
PROC: 5A09457 Assistance with Respiratory Ventilation, 24-96 Consecutive Hours, Continuous Positive Airway Pressure (ICD-10-PCS; 2017-07-07)
PROC: 5A09357 Assistance with Respiratory Ventilation, Less than 24 Consecutive Hours, Continuous Positive Airway Pressure (ICD-10-PCS; 2017-07-11)
DX: J18.9 Pneumonia, unspecified organism (principal); J96.21 Acute and chronic respiratory failure with hypoxia; J44.1 Chronic obstructive pulmonary disease with (acute) exacerbation; Z68.42 Body mass index [BMI] 45.0-49.9, adult; E44.0 Moderate protein-calorie malnutrition; J44.0 Chronic obstructive pulmonary disease with (acute) lower respiratory infection; I10 Essential (primary) hypertension; E03.9 Hypothyroidism, unspecified; E66.01 Morbid (severe) obesity due to excess calories; J20.9 Acute bronchitis, unspecified; J11.1 Influenza due to unidentified influenza virus with other respiratory manifestations; F41.9 Anxiety disorder, unspecified; G89.4 Chronic pain syndrome; Z66 Do not resuscitate; E11.65 Type 2 diabetes mellitus with hyperglycemia; Z71.3 Dietary counseling and surveillance; Z82.49 Family history of ischemic heart disease and other diseases of the circulatory system; Z83.3 Family history of diabetes mellitus
CPT/HCPCS: 36415; 71045; 80048; 80053; 80074; 82010; 82550; 82553; 82803; 83036; 83735; 83880; 84484; 85025; 85379; 85610; 85730; 86403; 87070; 87186; 87205; 93005; 93010; 94640; 94660; 94760; 99291; J1650; J2920; J2930

== ENCOUNTER 2017-07-12 12:25 | Inpatient (IN) | payer OTHER ==
[2017-07-12] MEDS ORDERED: PROVENTIL IH ONE (13:05)
[2017-07-12] MEDS ORDERED: ATROVENT IH ONE (13:08)
[2017-07-12] MEDS ORDERED: ASPIRIN PO ONE (13:16)
--- NOTE | 2017-07-12 13:20 | Emergency Department Report ---
ED Shortness of Breath HPI - General Chief Complaint: Dyspnea/Respdistress Stated Complaint: PRANAV Time Seen by Provider: 07/12/17 12:51 Source: EMS Mode of arrival: Stretcher Limitations: No Limitations - History of Present Illness MD Complaint: shortness of breath -: This morning Radiation: back Quality: sharp, other (pt states she pulled a muscle) Consistency: intermittent Worsens With: movement Known History Of: COPD Context: other (just discharged yesterday from here for flu and pneumonia; pt on palliative care at [facility]) - Related Data Previous Rx's Medication Instructions Recorded Last Taken Type Aspirin [Aspirin BABY CHEW TAB] 81 mg PO ONCE #30 tab.chew 08/18/14 07/05/17 Rx Levothyroxine [Synthroid] 150 mcg PO QAM #30 tab 08/18/14 07/05/17 Rx Tiotropium [Spiriva] 18 mcg INHALATION DAILY #10 box 08/18/14 07/05/17 Rx Benzonatate [Tessalon Perles] 100 mg PO Q8HR #30 capsule 07/11/17 Unknown Rx Loratadine [Claritin] 10 mg PO QDAY #30 tablet 07/11/17 Unknown Rx Mometasone/Formoterol [Dulera 200 2 puff IH BID #1 hfa.aer.ad 07/11/17 Unknown Rx Mcg/5 Mcg Inhaler] Montelukast [Singulair] 10 mg PO QPM #30 tablet 07/11/17 Unknown Rx Morphine [Morphine ORAL SOLN 10 5 mg PO Q4H PRN #120 ml 07/11/17 Unknown Rx MG/5 ML] Omeprazole Magnesium [PriLOSEC Otc] 20 mg PO QDAY #30 tablet.dr 07/11/17 Unknown Rx predniSONE [Deltasone] 10 mg PO .TAPER #48 tab 07/11/17 Unknown Rx Allergies Allergy/AdvReac Type Severity Reaction Status Date / Time No Known Allergies Allergy Verified 10/08/14 17:35 ED Review of Systems ROS: Stated complaint: PRANAV Other details as noted in HPI Constitutional: no symptoms reported Eyes: as per HPI Respiratory: shortness of breath, SOB with exertion, wheezing Cardiovascular: chest pain (right side of chest with movement) Endocrine: no symptoms reported Gastrointestinal: denies: abdominal pain Genitourinary: denies: urgency, frequency, hematuria Skin: change in color ED Past Medical Hx - Past Medical History Hx Hypertension: Yes Hx CVA: No Hx Congestive Heart Failure: No Hx Diabetes: (denies) Hx Deep Vein Thrombosis: No Hx Liver Disease: (denies) Hx Sickle Cell Disease: No Hx Psychiatric Treatment: No Hx Asthma: No Hx COPD: Yes Hx Dementia: No Hx HIV: No Additional medical history: Hypothyriodism - Surgical History Hx Coronary Stent: No Hx Open Heart Surgery: No Hx Pacemaker: No Hx Internal Defibrillator: No Hx Cholecystectomy: No Hx Appendectomy: No Hx Breast Surgery: No - Social History Smoking Status: Never Smoker - Medications Home Medications: Home Medications Medication Instructions Recorded Confirmed Last Taken Type Aspirin [Aspirin BABY CHEW TAB] 81 mg PO ONCE #30 tab.chew 08/18/14 07/06/1709/16 Rx Levothyroxine [Synthroid] 150 mcg PO QAM #30 tab 08/18/14 07/06/17 07/05/17 Rx Tiotropium [Spiriva] 18 mcg INHALATION DAILY #10 box 08/18/14 07/06/17 07/05/17 Rx Benzonatate [Tessalon Perles] 100 mg PO Q8HR #30 capsule 07/11/17 Unknown Rx Loratadine [Claritin] 10 mg PO QDAY #30 tablet 07/11/17 Unknown Rx Mometasone/Formoterol [Dulera 200 2 puff IH BID #1 hfa.aer.ad 07/11/17 Unknown Rx Mcg/5 Mcg Inhaler] Montelukast [Singulair] 10 mg PO QPM #30 tablet 07/11/17 Unknown Rx Morphine [Morphine ORAL SOLN 10 5 mg PO Q4H PRN #120 ml 07/11/17 Unknown Rx MG/5 ML] Omeprazole Magnesium [PriLOSEC Otc] 20 mg PO QDAY #30 tablet.dr 07/11/17 Unknown Rx predniSONE [Deltasone] 10 mg PO .TAPER #48 tab 07/11/17 Unknown Rx ED Physical Exam - General Limitations: No Limitations - Head Head exam: Present: atraumatic, normocephalic - Eye Eye exam: Present: normal appearance, PERRL, EOMI - ENT ENT exam: Present: normal exam, normal orophraynx, mucous membranes moist - Neck Neck exam: Present: normal inspection - Respiratory Respiratory exam: Present: wheezes (bilaterally), prolonged expiratory - Cardiovascular Cardiovascular Exam: Present: tachycardia - GI/Abdominal GI/Abdominal exam: Present: soft. Absent: distended, tenderness, guarding - External exam: Present: swelling (bilateral pretibial area) - Extremities Exam Extremities exam: Present: pedal edema - Neurological Exam Neurological exam: Present: alert, altered, oriented X3. Absent: motor sensory deficit - Psychiatric Psychiatric exam: Present: normal affect, normal mood - Skin Skin exam: Present: warm, dry, ecchymosis (diffusely upper ext) ED Course Vital Signs 07/12/17 07/12/17 07/12/17 12:27 12:31 12:40 Temperature 97.6 F Pulse Rate 108 H 108 H 108 H Pulse Rate [ Bilateral] Respiratory 32 H 31 H Rate Respiratory Rate [Bilateral ] Blood Pressure 129/69 129/69 Blood Pressure [Right] O2 Sat by Pulse 90 89 Oximetry 07/12/17 07/12/17 07/12/17 12:45 12:46 12:48 Temperature Pulse Rate 101 H 108 H Pulse Rate [ Bilateral] Respiratory 30 H 22 Rate Respiratory Rate [Bilateral ] Blood Pressure 129/69 Blood Pressure [Right] O2 Sat by Pulse 90 90 Oximetry 07/12/17 07/12/17 07/12/17 13:01 13:15 13:31 Temperature Pulse Rate 98 H 98 H 104 H Pulse Rate [ Bilateral] Respiratory 26 H 29 H 26 H Rate Respiratory Rate [Bilateral ] Blood Pressure 129/69 129/69 129/69 Blood Pressure [Right] O2 Sat by Pulse 90 91 86 Oximetry 07/12/17 07/12/17 07/12/17 13:45 14:01 14:15 Temperature Pulse Rate 97 H 97 H 94 H Pulse Rate [ Bilateral] Respiratory 26 H 32 H 30 H Rate Respiratory Rate [Bilateral ] Blood Pressure 129/69 129/69 129/69 Blood Pressure [Right] O2 Sat by Pulse 90 91 89 Oximetry 07/12/17 07/12/17 07/12/17 14:31 14:37 14:45 Temperature Pulse Rate 96 H 95 H Pulse Rate [ 96 H Bilateral] Respiratory 29 H 32 H Rate Respiratory 23 Rate [Bilateral ] Blood Pressure 129/69 129/69 Blood Pressure [Right] O2 Sat by Pulse 92 92 Oximetry 07/12/17 07/12/17 07/12/17 14:53 15:00 15:15 Temperature Pulse Rate 93 H 92 H 97 H Pulse Rate [ Bilateral] Respiratory 28 H 35 H Rate Respiratory Rate [Bilateral ] Blood Pressure 129/67 129/67 Blood Pressure 136/64 [Right] O2 Sat by Pulse 92 92 Oximetry 07/12/17 15:40 Temperature Pulse Rate Pulse Rate [ 101 H Bilateral] Respiratory Rate Respiratory 23 Rate [Bilateral ] Blood Pressure Blood Pressure [Right] O2 Sat by Pulse Oximetry ED Medical Decision Making - Lab Data Result diagrams: 07/12/17 12:56 07/12/17 13:25 - EKG Data -: EKG Interpreted by Me EKG shows normal: sinus rhythm Rate: tachycardia - EKG Data When compared to previous EKG there are: other (poor tracign with artifact) - Medical Decision Making 1450: Pt is receiving a treatment; pt states her breathing is no better; pt with some retractions; call placed to [facility] for admission pt advised of her results; pt is pending Ct angio for pe with sob and elevated ddimer; pt is DNR except intubation 1525: Dr Ellsworth called me back from [facility] and stated that the pt should stay here for admission 1715-I discussed this pt with Dr Arcos and he stated he would speak with the pt about admission Critical care attestation.: If time is entered above; I have spent that time in minutes in the direct care of this critically ill patient, excluding procedure time. ED Disposition Clinical Impression: COPD exacerbation Disposition: OP ADMIT IP TO THIS HOSP Is pt being admited?: Yes Does the pt Need Aspirin: No Condition: Stable Instructions: Chronic Bronchitis (ED) Referrals: PRIMARY CARE, [Primary Care Provider] - 3-5 Days Time of Disposition: 17:58
--- NOTE | 2017-07-12 13:23 | XRay Report ---
AP CHEST :07/12/17 12:25:00 CLINICAL: Shortness of breath. COMPARISON:07/05/17 FINDINGS: Normal heart and pulmonary vasculature. Subsegmental atelectasis in the left lung base. The lungs are otherwise clear. IMPRESSION: Left basal subsegmental atelectasis. No CHF or pneumonia.
[2017-07-12 13:41] LABS: BUN/Creatinine Ratio 20; Blood Urea Nitrogen 10 mg/dL (7-17); Calcium 9.1 mg/dL (8.4-10.2); Hemolysis Index 6
[2017-07-12 13:58] LABS: Hematocrit 41.1 % (30.3-42.9); Hemoglobin 13.1 gm/dl (10.1-14.3); Mean Corpuscular HGB Conc 32 % (30-34); Mean Corpuscular Volume 79 fl (79-97); Platelet Count 111 K/mm3 (140-440)
[2017-07-12 14:16] LABS: Mean Corpuscular Hemoglobin 25 pg (28-32)
[2017-07-12 14:20] LABS: Alanine Aminotransferase 22 units/L (7-56); Albumin 3.6 g/dL (3.9-5); BUN/Creatinine Ratio 20; Blood Urea Nitrogen 10 mg/dL (7-17); Hemolysis Index 4
[2017-07-12] MEDS ORDERED: K-DUR PO ONE (14:43)
[2017-07-12 15:21] LABS: Band Neutrophils # (Manual) 0.2 K/mm3; Basophils % (Manual) 0 % (0.0-1.8); Eosinophils % (Manual) 0 % (0.0-4.3); Total Cells Counted 100
[2017-07-12 15:22] LABS: Platelet Estimate Consistent w Auto; Spherocytes Few
[2017-07-12] MEDS ORDERED: NACL ONE (15:46)
--- NOTE | 2017-07-12 16:40 | Cat Scan Report ---
FINAL REPORT PROCEDURE: CT ANGIO CHEST TECHNIQUE: Computerized tomographic angiography of the chest was performed after the IV injection of iodinated nonionic contrast including image processing. The image data was postprocessed using 2-dimensional multiplanar reformatted (MPR) and 3-dimensional (MIP and/or volume rendered) techniques. HISTORY: pulmonary embolism COMPARISON: No prior studies are available for comparison. FINDINGS: Heart and pericardium: No pericardial effusion or thickening. Thoracic aorta: Normal. Pulmonary vasculature: Normal. Lymph nodes: No enlarged thoracic lymph nodes. Lungs: There are bilateral patchy airspace opacities, in the left upper lobe, right upper lobe, medial left lower lobe and left posterior lung base. There is a 4 millimeter right middle lobe nodule. Pleural space: No effusion, thickening, or pneumothorax. Musculoskeletal structures: Diffuse thoracolumbar spine degenerative disc changes are present. Upper abdominal structures: No significant abnormality. IMPRESSION: No evidence of pulmonary emboli. There are patchy bilateral pulmonary airspace opacities as described above, which may be related to pneumonia. Recommend follow-up to resolution however to exclude any underlying neoplastic process
[2017-07-12] MEDS ORDERED: SUBLIMAZE IV ONE (16:42)
[2017-07-12] MEDS ORDERED: MORPHINE IV ONE (16:53)
[2017-07-12] MEDS ORDERED: DUONEB *Not for PRN Use IH (21:18)
[2017-07-12] MEDS ORDERED: DILAUDID IV PRN (21:23)
[2017-07-12] MEDS ORDERED: TYLENOL PO PRN (21:23)
[2017-07-12] MEDS ORDERED: MILK OF MAGNESIA PO PRN (21:23)
[2017-07-12] MEDS ORDERED: ZOFRAN IV PRN (21:23)
[2017-07-12] MEDS ORDERED: PERCOCET 5/325 PO PRN (21:23)
[2017-07-12] MEDS ORDERED: DULCOLAX PR PRN (21:23)
--- NOTE | 2017-07-12 21:27 | History and Physical Report ---
History of Present Illness Date of examination: 07/12/17 Date of admission: 07/12/17 17:59 Chief complaint: Increasing SOB History of present illness: History of present illness: Patient discharged yesterday comes in for icreasing SOB.Rescinds DNT order.Patient says that her symptoms of Resp failure have come back.Feels that she was discharged earlier.No feveror chills.No exacerbating or relieving factors. Past History Past Medical History: COPD, diabetes, hypertension, hypothyroidism, other ( Obesity) Past Surgical History: No surgical history, Other (reviewed) Social history: , lives with family. denies: smoking, alcohol abuse, prescription drug abuse Family history: diabetes, hypertension Medications and Allergies Allergies Allergy/AdvReac Type Severity Reaction Status Date / Time No Known Allergies Allergy Verified 10/08/14 17:35 Home Medications Medication Instructions Recorded Confirmed Last Taken Type Aspirin [Aspirin BABY CHEW TAB] 81 mg PO ONCE #30 tab.chew 08/18/14 Unknown Rx Benzonatate [Tessalon Perles] 100 mg PO Q8HR #30 capsule 08/18/14 Unknown Rx Glimepiride [Amaryl] 1 mg PO QDDIAB #30 tablet 08/18/14 Unknown Rx Levothyroxine [Synthroid] 150 mcg PO QAM #30 tab 08/18/14 Unknown Rx Loratadine [Claritin] 10 mg PO QDAY #30 tablet 08/18/14 Unknown Rx Mometasone/Formoterol [Dulera 200 2 puff IH BID #1 hfa.aer.ad 08/18/14 Unknown Rx Mcg/5 Mcg Inhaler] Montelukast [Singulair] 10 mg PO QPM #30 tablet 08/18/14 Unknown Rx Omeprazole [PriLOSEC] 20 mg PO QDAY #30 capsule. 08/18/14 Unknown Rx Prednisone [predniSONE (Grady) ER 20 mg PO QDAY #40 tab 08/18/14 Unknown Rx TAB] Tiotropium [Spiriva] 18 mcg INHALATION DAILY #10 box 08/18/14 Unknown Rx metFORMIN [Glucophage] 500 mg PO BID #60 tablet 08/18/14 Unknown Rx Review of Systems Constitutional: no weight loss, no weight gain, no fever, no chills, no sweats, no night sweats Ears, nose, mouth and throat: no ear pain, no ear discharge, no tinnitis, no decreased hearing, no nose pain, no nasal congestion Breasts: no change in shape, no swelling, no mass Cardiovascular: no chest pain, no orthopnea, no palpitations Respiratory: cough with sputum, excessive sputum, shortness of breath, wheezing Gastrointestinal: no nausea, no vomiting, no diarrhea, no constipation Genitourinary Female: no pelvic pain, no flank pain, no menorrhagia, no dysuria , no urinary frequency, no urgency Rectal: no pain, no incontinence, no bleeding Musculoskeletal: no neck stiffness, no neck pain, no shooting arm pain, no arm numbness/tingling, no low back pain, no shooting leg pain, no leg numbness/ tingling Integumentary: no rash, no pruritis, no redness, no sores, no wounds, no jaundice Neurological: no head injury, no transient paralysis, no paralysis, no weakness , no parathesias, no numbness, no tingling Psychiatric: no anxiety, no memory loss, no change in sleep habits, no sleep disturbances, no insomnia, no hypersomnia, no change in appetite Endocrine: no cold intolerance, no heat intolerance, no polyphagia, no polydipsia, no polyuria, no nocturia Hematologic/Lymphatic: no easy bruising, no easy bleeding, no lymphadenopathy, no lymphedema Allergic/Immunologic: no urticaria, no allergic rhinitis, no wheezing, no persistent infections, no anaphylaxis Medications and Allergies Allergies Allergy/AdvReac Type Severity Reaction Status Date / Time No Known Allergies Allergy Verified 10/08/14 17:35 Home Medications Medication Instructions Recorded Confirmed Last Taken Type Aspirin [Aspirin BABY CHEW TAB] 81 mg PO ONCE #30 tab.chew 08/18/14 07/13/1709/16 Rx Levothyroxine [Synthroid] 150 mcg PO QAM #30 tab 08/18/14 07/13/17 07/05/17 Rx Tiotropium [Spiriva] 18 mcg INHALATION DAILY #10 box 08/18/14 07/13/17 07/05/17 Rx Benzonatate [Tessalon Perles] 100 mg PO Q8HR #30 capsule 07/11/17 07/13/17 Unknown Rx Loratadine [Claritin] 10 mg PO QDAY #30 tablet 07/11/17 07/13/17 Unknown Rx Mometasone/Formoterol [Dulera 200 2 puff IH BID #1 hfa.aer.ad 07/11/17 07/13/17 Unknown Rx Mcg/5 Mcg Inhaler] Montelukast [Singulair] 10 mg PO QPM #30 tablet 07/11/17 07/13/17 Unknown Rx Morphine [Morphine ORAL SOLN 10 5 mg PO Q4H PRN #120 ml 07/11/17 07/13/17 Unknown Rx MG/5 ML] Omeprazole Magnesium [PriLOSEC Otc] 20 mg PO QDAY #30 tablet. 07/11/17 Unknown Rx predniSONE [Deltasone] 5 mg PO QDAY 07/13/17 07/13/17 Unknown History Exam - Constitutional Vitals: Temp Pulse Resp BP Pulse Ox 97.6 F 80 22 139/63 95 07/12/17 12:40 07/12/17 20:31 07/12/17 20:31 07/12/17 20:31 07/12/17 21:00 General appearance: Present: severe distress, well-nourished - EENT Eyes: Present: PERRL ENT: hearing intact, clear oral mucosa - Neck Neck: Present: supple, normal ROM - Respiratory Respiratory effort: normal Respiratory: bilateral: diminished, rhonchi, wheezing - Cardiovascular Heart rate: 90 Rhythm: regular Heart Sounds: Present: S1 & S2. Absent: rub, click - Extremities Extremities: no ischemia, pulses intact, pulses symmetrical, No edema Extremity abnormal: edema Peripheral Pulses: within normal limits - Abdominal General gastrointestinal: Present: soft, non-tender, non-distended, normal bowel sounds Female genitourinary: Present: normal - Rectal Rectal Exam: deferred - Integumentary Integumentary: Present: clear, warm, dry - Musculoskeletal Musculoskeletal: gait normal, strength equal bilaterally - Psychiatric Psychiatric: appropriate mood/affect, intact judgment & insight - Neurologic Neurologic: CNII-XII intact, moves all extremities - Allied Health Allied health notes reviewed: nursing, case management Results - Labs CBC & Chem 7: 07/13/17 04:40 07/13/17 04:40 Labs: Laboratory Last Values WBC 20.8 K/mm3 (4.5-11.0) H 07/12/17 12:56 RBC 5.20 M/mm3 (3.65-5.03) H 07/12/17 12:56 Hgb 13.1 gm/dl (10.1-14.3) 07/12/17 12:56 Hct 41.1 % (30.3-42.9) 07/12/17 12:56 MCV 79 fl (79-97) 07/12/17 12:56 MCH 25 pg (28-32) L 07/12/17 12:56 MCHC 32 % (30-34) 07/12/17 12:56 RDW 19.0 % (13.2-15.2) H 07/12/17 12:56 Plt Count 111 K/mm3 (140-440) L 07/12/17 12:56 Add Manual Diff Complete 07/12/17 12:56 Total Counted 100 07/12/17 12:56 Seg Neutrophils % Health Education Coordinator 07/12/17 12:56 Seg Neuts % (Manual) 87.0 % (40.0-70.0) H 07/12/17 12:56 Band Neutrophils % 1.0 % 07/12/17 12:56 Lymphocytes % (Manual) 4.0 % (13.4-35.0) L 07/12/17 12:56 Reactive Lymphs % (Man) 0 % 07/12/17 12:56 Monocytes % (Manual) 8.0 % (0.0-7.3) H 07/12/17 12:56 Eosinophils % (Manual) 0 % (0.0-4.3) 07/12/17 12:56 Basophils % (Manual) 0 % (0.0-1.8) 07/12/17 12:56 Metamyelocytes % 0 % 07/12/17 12:56 Myelocytes % 0 % 07/12/17 12:56 Promyelocytes % 0 % 07/12/17 12:56 Blast Cells % 0 % 07/12/17 12:56 Nucleated RBC % Not Reportable 07/12/17 12:56 Seg Neutrophils # Man 18.1 K/mm3 (1.8-7.7) H 07/12/17 12:56 Band Neutrophils # 0.2 K/mm3 07/12/17 12:56 Lymphocytes # (Manual) 0.8 K/mm3 (1.2-5.4) L 07/12/17 12:56 Abs React Lymphs (Man) 0.0 K/mm3 07/12/17 12:56 Monocytes # (Manual) 1.7 K/mm3 (0.0-0.8) H 07/12/17 12:56 Eosinophils # (Manual) 0.0 K/mm3 (0.0-0.4) 07/12/17 12:56 Basophils # (Manual) 0.0 K/mm3 (0.0-0.1) 07/12/17 12:56 Metamyelocytes # 0.0 K/mm3 07/12/17 12:56 Myelocytes # 0.0 K/mm3 07/12/17 12:56 Promyelocytes # 0.0 K/mm3 07/12/17 12:56 Blast Cells # 0.0 K/mm3 07/12/17 12:56 WBC Morphology Not Reportable 07/12/17 12:56 Hypersegmented Neuts Not Reportable 07/12/17 12:56 Hyposegmented Neuts Not Reportable 07/12/17 12:56 Hypogranular Neuts Not Reportable 07/12/17 12:56 Smudge Cells Not Reportable 07/12/17 12:56 Toxic Granulation Not Reportable 07/12/17 12:56 Toxic Vacuolation Not Reportable 07/12/17 12:56 Dohle Bodies Not Reportable 07/12/17 12:56 Pelger-Huet Anomaly Not Reportable 07/12/17 12:56 Oli Rods Not Reportable 07/12/17 12:56 Platelet Estimate Consistent w auto 07/12/17 12:56 Clumped Platelets Not Reportable 07/12/17 12:56 Plt Clumps, EDTA Not Reportable 07/12/17 12:56 Large Platelets Not Reportable 07/12/17 12:56 Giant Platelets Not Reportable 07/12/17 12:56 Platelet Satelliting Not Reportable 07/12/17 12:56 Plt Morphology Comment Not Reportable 07/12/17 12:56 RBC Morphology Not Reportable 07/12/17 12:56 Dimorphic RBCs Not Reportable 07/12/17 12:56 Polychromasia Not Reportable 07/12/17 12:56 Hypochromasia Not Reportable 07/12/17 12:56 Poikilocytosis Not Reportable 07/12/17 12:56 Anisocytosis Not Reportable 07/12/17 12:56 Microcytosis Not Reportable 07/12/17 12:56 Macrocytosis Not Reportable 07/12/17 12:56 Spherocytes Few 07/12/17 12:56 Pappenheimer Bodies Not Reportable 07/12/17 12:56 Sickle Cells Not Reportable 07/12/17 12:56 Target Cells Not Reportable 07/12/17 12:56 Tear Drop Cells Not Reportable 07/12/17 12:56 Ovalocytes Not Reportable 07/12/17 12:56 Helmet Cells Not Reportable 07/12/17 12:56 [place] Bodies Not Reportable 07/12/17 12:56 Wisdom Rings Not Reportable 07/12/17 12:56 Roxanna Cells Not Reportable 07/12/17 12:56 Bite Cells Not Reportable 07/12/17 12:56 Crenated Cell Not Reportable 07/12/17 12:56 Elliptocytes Few 07/12/17 12:56 Acanthocytes (Spur) Not Reportable 07/12/17 12:56 Rouleaux Not Reportable 07/12/17 12:56 Hemoglobin C Crystals Not Reportable 07/12/17 12:56 Schistocytes Not Reportable 07/12/17 12:56 Malaria parasites Not Reportable 07/12/17 12:56 Juan Pablo Bodies Not Reportable 07/12/17 12:56 Hem Pathologist Commnt No 07/12/17 12:56 D-Dimer 695.02 ng/mlDDU (0-234) H 07/12/17 13:25 Sodium 140 mmol/L (137-145) 07/12/17 13:25 Potassium 3.5 mmol/L (3.6-5.0) L 07/12/17 13:25 Chloride 91.7 mmol/L (98-107) L 07/12/17 13:25 Carbon Dioxide 37 mmol/L (22-30) H 07/12/17 13:25 Anion Gap 15 mmol/L 07/12/17 13:25 BUN 10 mg/dL (7-17) 07/12/17 13:25 Creatinine 0.5 mg/dL (0.7-1.2) L 07/12/17 13:25 Estimated GFR > 60 ml/min 07/12/17 13:25 BUN/Creatinine Ratio 20 % 07/12/17 13:25 Glucose 149 mg/dL (65-100) H 07/12/17 13:25 Calcium 9.0 mg/dL (8.4-10.2) 07/12/17 13:25 Total Bilirubin 1.20 mg/dL (0.1-1.2) 07/12/17 13:25 AST 12 units/L (5-40) 07/12/17 13:25 ALT 22 units/L (7-56) 07/12/17 13:25 Alkaline Phosphatase 51 units/L (35-129) 07/12/17 13:25 Troponin T < 0.010 ng/mL (0.00-0.029) 07/12/17 13:25 NT-Pro-B Natriuret Pep 188.3 pg/mL (0-900) 07/12/17 13:25 Total Protein 6.3 g/dL (6.3-8.2) 07/12/17 13:25 Albumin 3.6 g/dL (3.9-5) L 07/12/17 13:25 Albumin/Globulin Ratio 1.3 % 07/12/17 13:25 - Imaging and Cardiology EKG: report reviewed Chest x-ray: report reviewed Assessment and Plan Assessment and plan: Assessment and Plan - Patient Problems (1) Acute respiratory failure Current Visit: Yes Status: Acute Qualifiers: Respiratory failure complication: hypoxia Qualified Code(s): J96.01 - Acute respiratory failure with hypoxia Plan to address problem: NIPPV, supplemental oxygen, nebulizer therapy, pulse oximetry, supportive care. 1A) Sepsis IV Rocepin and Zithromycon (2) HTN (hypertension) Current Visit: Yes Status: Acute Qualifiers: Hypertension type: essential hypertension Qualified Code(s): I10 - Essential (primary) hypertension Plan to address problem: monitor bp q shift, continue medical management (3) Diabetes Current Visit: Yes Status: Acute Plan to address problem: ADA diet, insulin, accu check (4) Hypothyroid Current Visit: Yes Status: Acute Qualifiers: Hypothyroidism type: acquired Qualified Code(s): E03.9 - Hypothyroidism, unspecified Plan to address problem: continue current therapy, continue thyroid replacement. (5) COPD exacerbation Current Visit: No Status: Acute Plan to address problem: IV abx, steroids, supplemental oxygen, NIPPV, Chest X ray, D dimer (6) DVT prophylaxis Current Visit: No Status: Acute LTAC placement requested
[2017-07-12] MEDS: PEPCID IV SCH (22:30)
[2017-07-12] MEDS ORDERED: PROVENTIL IH PRN (22:41)
[2017-07-12] MEDS: ZITHROMAX 500 MG in NACL 0.9% 250ML 250 ML IV SCH (23:48)
[2017-07-13 05:04] LABS: Hematocrit 39.6 % (30.3-42.9); Hemoglobin 12.8 gm/dl (10.1-14.3); Mean Corpuscular HGB Conc 32 % (30-34); Mean Corpuscular Hemoglobin 26 pg (28-32); Mean Corpuscular Volume 79 fl (79-97); Platelet Count 113 K/mm3 (140-440); Red Blood Count 5.03 M/mm3 (3.65-5.03)
[2017-07-13 05:26] LABS: Alanine Aminotransferase 18 units/L (7-56); Albumin 3.4 g/dL (3.9-5); BUN/Creatinine Ratio 20; Blood Urea Nitrogen 10 mg/dL (7-17); Calcium 9.6 mg/dL (8.4-10.2); Hemolysis Index 5
[2017-07-13 05:55] LABS: Basophils % (Manual) 0 % (0.0-1.8); Eosinophils % (Manual) 0 % (0.0-4.3); Total Cells Counted 100
[2017-07-13 05:56] LABS: Hypochromasia 1+; Platelet Estimate Consistent w Auto
[2017-07-13] MEDS: DUONEB *Not for PRN Use IH SCH ×5 (07:50→23:01)
--- NOTE | 2017-07-13 09:18 | Progress Note ---
<ROSETTA CAMPOS - Last Filed: 07/13/17 15:29> Assessment and Plan Assessment and plan: Acute respiratory failure NIPPV, supplemental oxygen, nebulizer therapy, pulse oximetry, supportive care Pulmonary consult Sepsis IV Rocepin and Zithromycon HTN (hypertension) monitor bp frequently, continue medical management Diabetes ADA diet, insulin, accu check, SSI Hypothyroid continue current therapy, continue thyroid replacement. COPD exacerbation IV abx, steroids, supplemental oxygen, NIPPV DVT prophylaxis SCDs LTAC placement requested History Interval history: Patient seen and examined in ED. She continues to complain of shortness of breath and is on 15 L of oxygen via non-rebreather mask. She denies chest pain , nausea vomiting. Labs and nursing notes reviewed. Hospitalist Physical - Constitutional Vitals: Temp Pulse Resp BP Pulse Ox 97.9 F 62 18 141/66 96 07/13/17 08:35 07/13/17 07:01 07/13/17 08:35 07/13/17 07:01 07/13/17 08:35 General appearance: Present: mild distress, well-nourished - EENT Eyes: Present: PERRL, EOM intact ENT: hearing intact, clear oral mucosa - Neck Neck: Present: supple, normal ROM - Respiratory Respiratory effort: normal Respiratory: bilateral: diminished, rhonchi, wheezing - Cardiovascular Rhythm: regular Heart Sounds: Present: S1 & S2 - Extremities Extremities: no ischemia, No edema - Abdominal General gastrointestinal: soft, non-tender, non-distended - Integumentary Integumentary: Present: clear, warm, dry - Psychiatric Psychiatric: appropriate mood/affect, cooperative - Neurologic Neurologic: CNII-XII intact, moves all extremities - Allied Health Allied health notes reviewed: nursing Results - Labs CBC & Chem 7: 07/13/17 04:40 07/13/17 04:40 Labs: Laboratory Last Values WBC 18.5 K/mm3 (4.5-11.0) H 07/13/17 04:40 RBC 5.03 M/mm3 (3.65-5.03) 07/13/17 04:40 Hgb 12.8 gm/dl (10.1-14.3) 07/13/17 04:40 Hct 39.6 % (30.3-42.9) 07/13/17 04:40 MCV 79 fl (79-97) 07/13/17 04:40 MCH 26 pg (28-32) L 07/13/17 04:40 MCHC 32 % (30-34) 07/13/17 04:40 RDW 19.0 % (13.2-15.2) H 07/13/17 04:40 Plt Count 113 K/mm3 (140-440) L 07/13/17 04:40 Add Manual Diff Complete 07/13/17 04:40 Total Counted 100 07/13/17 04:40 Seg Neutrophils % Splunk Dashboard Developer 07/13/17 04:40 Seg Neuts % (Manual) 98.0 % (40.0-70.0) H 07/13/17 04:40 Band Neutrophils % 0 % 07/13/17 04:40 Lymphocytes % (Manual) 1.0 % (13.4-35.0) L 07/13/17 04:40 Reactive Lymphs % (Man) 0 % 07/13/17 04:40 Monocytes % (Manual) 1.0 % (0.0-7.3) 07/13/17 04:40 Eosinophils % (Manual) 0 % (0.0-4.3) 07/13/17 04:40 Basophils % (Manual) 0 % (0.0-1.8) 07/13/17 04:40 Metamyelocytes % 0 % 07/13/17 04:40 Myelocytes % 0 % 07/13/17 04:40 Promyelocytes % 0 % 07/13/17 04:40 Blast Cells % 0 % 07/13/17 04:40 Nucleated RBC % Not Reportable 07/13/17 04:40 Seg Neutrophils # Man 18.1 K/mm3 (1.8-7.7) H 07/13/17 04:40 Band Neutrophils # 0.0 K/mm3 07/13/17 04:40 Lymphocytes # (Manual) 0.2 K/mm3 (1.2-5.4) L 07/13/17 04:40 Abs React Lymphs (Man) 0.0 K/mm3 07/13/17 04:40 Monocytes # (Manual) 0.2 K/mm3 (0.0-0.8) 07/13/17 04:40 Eosinophils # (Manual) 0.0 K/mm3 (0.0-0.4) 07/13/17 04:40 Basophils # (Manual) 0.0 K/mm3 (0.0-0.1) 07/13/17 04:40 Metamyelocytes # 0.0 K/mm3 07/13/17 04:40 Myelocytes # 0.0 K/mm3 07/13/17 04:40 Promyelocytes # 0.0 K/mm3 07/13/17 04:40 Blast Cells # 0.0 K/mm3 07/13/17 04:40 WBC Morphology Not Reportable 07/13/17 04:40 Hypersegmented Neuts Not Reportable 07/13/17 04:40 Hyposegmented Neuts Not Reportable 07/13/17 04:40 Hypogranular Neuts Not Reportable 07/13/17 04:40 Smudge Cells Not Reportable 07/13/17 04:40 Toxic Granulation Not Reportable 07/13/17 04:40 Toxic Vacuolation Not Reportable 07/13/17 04:40 Dohle Bodies Not Reportable 07/13/17 04:40 Pelger-Huet Anomaly Not Reportable 07/13/17 04:40 Oli Rods Not Reportable 07/13/17 04:40 Platelet Estimate Consistent w auto 07/13/17 04:40 Clumped Platelets Not Reportable 07/13/17 04:40 Plt Clumps, EDTA Not Reportable 07/13/17 04:40 Large Platelets Not Reportable 07/13/17 04:40 Giant Platelets Not Reportable 07/13/17 04:40 Platelet Satelliting Not Reportable 07/13/17 04:40 Plt Morphology Comment Not Reportable 07/13/17 04:40 RBC Morphology Not Reportable 07/13/17 04:40 Dimorphic RBCs Not Reportable 07/13/17 04:40 Polychromasia Not Reportable 07/13/17 04:40 Hypochromasia 1+ 07/13/17 04:40 Poikilocytosis Not Reportable 07/13/17 04:40 Anisocytosis Not Reportable 07/13/17 04:40 Microcytosis Not Reportable 07/13/17 04:40 Macrocytosis Not Reportable 07/13/17 04:40 Spherocytes Not Reportable 07/13/17 04:40 Pappenheimer Bodies Not Reportable 07/13/17 04:40 Sickle Cells Not Reportable 07/13/17 04:40 Target Cells Not Reportable 07/13/17 04:40 Tear Drop Cells Not Reportable 07/13/17 04:40 Ovalocytes Not Reportable 07/13/17 04:40 Helmet Cells Not Reportable 07/13/17 04:40 [place] Bodies Not Reportable 07/13/17 04:40 [place] Rings Not Reportable 07/13/17 04:40 [place] Cells Not Reportable 07/13/17 04:40 Bite Cells Not Reportable 07/13/17 04:40 Crenated Cell Not Reportable 07/13/17 04:40 Elliptocytes Not Reportable 07/13/17 04:40 Acanthocytes (Spur) Not Reportable 07/13/17 04:40 Rouleaux Not Reportable 07/13/17 04:40 Hemoglobin C Crystals Not Reportable 07/13/17 04:40 Schistocytes Not Reportable 07/13/17 04:40 Malaria parasites Not Reportable 07/13/17 04:40 [place] Bodies Not Reportable 07/13/17 04:40 Hem Pathologist Commnt No 07/13/17 04:40 D-Dimer 695.02 ng/mlDDU (0-234) H 07/12/17 13:25 Sodium 143 mmol/L (137-145) 07/13/17 04:40 Potassium 4.9 mmol/L (3.6-5.0) D 07/13/17 04:40 Chloride 93.6 mmol/L (98-107) L 07/13/17 04:40 Carbon Dioxide 38 mmol/L (22-30) H 07/13/17 04:40 Anion Gap 16 mmol/L 07/13/17 04:40 BUN 10 mg/dL (7-17) 07/13/17 04:40 Creatinine 0.5 mg/dL (0.7-1.2) L 07/13/17 04:40 Estimated GFR > 60 ml/min 07/13/17 04:40 BUN/Creatinine Ratio 20 % 07/13/17 04:40 Glucose 205 mg/dL (65-100) H 07/13/17 04:40 Hemoglobin A1c 6.5 % (4-6) H 07/12/17 12:56 Calcium 9.6 mg/dL (8.4-10.2) 07/13/17 04:40 Total Bilirubin 0.70 mg/dL (0.1-1.2) 07/13/17 04:40 AST 8 units/L (5-40) 07/13/17 04:40 ALT 18 units/L (7-56) 07/13/17 04:40 Alkaline Phosphatase 44 units/L (35-129) 07/13/17 04:40 Troponin T < 0.010 ng/mL (0.00-0.029) 07/12/17 13:25 NT-Pro-B Natriuret Pep 188.3 pg/mL (0-900) 07/12/17 13:25 Total Protein 6.7 g/dL (6.3-8.2) 07/13/17 04:40 Albumin 3.4 g/dL (3.9-5) L 07/13/17 04:40 Albumin/Globulin Ratio 1.0 % 07/13/17 04:40 <LEROY ELIZABETH - Last Filed: 07/14/17 01:47> Assessment and Plan Assessment and plan: I saw and evaluated the patient on 07/13/17. I agree with the findings and the plan of care as documented in the Nurse Practitioner's~note, with the following corrections and additions. Acute on chronic respiratory failure, pt on home O2 Sepsis due to b/l PNA - repeat CT scan after completion of abx to r/o malignancy ? Hospitalist Physical - Constitutional Vitals: Temp Pulse Resp BP Pulse Ox 97.4 F L 71 22 136/63 96 07/14/17 00:14 07/14/17 00:14 07/14/17 00:14 07/14/17 00:14 07/14/17 00:14 Results - Labs CBC & Chem 7: 07/13/17 04:40 07/13/17 04:40 Labs: Laboratory Last Values WBC 18.5 K/mm3 (4.5-11.0) H 07/13/17 04:40 RBC 5.03 M/mm3 (3.65-5.03) 07/13/17 04:40 Hgb 12.8 gm/dl (10.1-14.3) 07/13/17 04:40 Hct 39.6 % (30.3-42.9) 07/13/17 04:40 MCV 79 fl (79-97) 07/13/17 04:40 MCH 26 pg (28-32) L 07/13/17 04:40 MCHC 32 % (30-34) 07/13/17 04:40 RDW 19.0 % (13.2-15.2) H 07/13/17 04:40 Plt Count 113 K/mm3 (140-440) L 07/13/17 04:40 Add Manual Diff Complete 07/13/17 04:40 Total Counted 100 07/13/17 04:40 Seg Neutrophils % Splunk Dashboard Developer 07/13/17 04:40 Seg Neuts % (Manual) 98.0 % (40.0-70.0) H 07/13/17 04:40 Band Neutrophils % 0 % 07/13/17 04:40 Lymphocytes % (Manual) 1.0 % (13.4-35.0) L 07/13/17 04:40 Reactive Lymphs % (Man) 0 % 07/13/17 04:40 Monocytes % (Manual) 1.0 % (0.0-7.3) 07/13/17 04:40 Eosinophils % (Manual) 0 % (0.0-4.3) 07/13/17 04:40 Basophils % (Manual) 0 % (0.0-1.8) 07/13/17 04:40 Metamyelocytes % 0 % 07/13/17 04:40 Myelocytes % 0 % 07/13/17 04:40 Promyelocytes % 0 % 07/13/17 04:40 Blast Cells % 0 % 07/13/17 04:40 Nucleated RBC % Not Reportable 07/13/17 04:40 Seg Neutrophils # Man 18.1 K/mm3 (1.8-7.7) H 07/13/17 04:40 Band Neutrophils # 0.0 K/mm3 07/13/17 04:40 Lymphocytes # (Manual) 0.2 K/mm3 (1.2-5.4) L 07/13/17 04:40 Abs React Lymphs (Man) 0.0 K/mm3 07/13/17 04:40 Monocytes # (Manual) 0.2 K/mm3 (0.0-0.8) 07/13/17 04:40 Eosinophils # (Manual) 0.0 K/mm3 (0.0-0.4) 07/13/17 04:40 Basophils # (Manual) 0.0 K/mm3 (0.0-0.1) 07/13/17 04:40 Metamyelocytes # 0.0 K/mm3 07/13/17 04:40 Myelocytes # 0.0 K/mm3 07/13/17 04:40 Promyelocytes # 0.0 K/mm3 07/13/17 04:40 Blast Cells # 0.0 K/mm3 07/13/17 04:40 WBC Morphology Not Reportable 07/13/17 04:40 Hypersegmented Neuts Not Reportable 07/13/17 04:40 Hyposegmented Neuts Not Reportable 07/13/17 04:40 Hypogranular Neuts Not Reportable 07/13/17 04:40 Smudge Cells Not Reportable 07/13/17 04:40 Toxic Granulation Not Reportable 07/13/17 04:40 Toxic Vacuolation Not Reportable 07/13/17 04:40 Dohle Bodies Not Reportable 07/13/17 04:40 Pelger-Huet Anomaly Not Reportable 07/13/17 04:40 Oli Rods Not Reportable 07/13/17 04:40 Platelet Estimate Consistent w auto 07/13/17 04:40 Clumped Platelets Not Reportable 07/13/17 04:40 Plt Clumps, EDTA Not Reportable 07/13/17 04:40 Large Platelets Not Reportable 07/13/17 04:40 Giant Platelets Not Reportable 07/13/17 04:40 Platelet Satelliting Not Reportable 07/13/17 04:40 Plt Morphology Comment Not Reportable 07/13/17 04:40 RBC Morphology Not Reportable 07/13/17 04:40 Dimorphic RBCs Not Reportable 07/13/17 04:40 Polychromasia Not Reportable 07/13/17 04:40 Hypochromasia 1+ 07/13/17 04:40 Poikilocytosis Not Reportable 07/13/17 04:40 Anisocytosis Not Reportable 07/13/17 04:40 Microcytosis Not Reportable 07/13/17 04:40 Macrocytosis Not Reportable 07/13/17 04:40 Spherocytes Not Reportable 07/13/17 04:40 Pappenheimer Bodies Not Reportable 07/13/17 04:40 Sickle Cells Not Reportable 07/13/17 04:40 Target Cells Not Reportable 07/13/17 04:40 Tear Drop Cells Not Reportable 07/13/17 04:40 Ovalocytes Not Reportable 07/13/17 04:40 Helmet Cells Not Reportable 07/13/17 04:40 [place] Bodies Not Reportable 07/13/17 04:40 [place] Rings Not Reportable 07/13/17 04:40 [place] Cells Not Reportable 07/13/17 04:40 Bite Cells Not Reportable 07/13/17 04:40 Crenated Cell Not Reportable 07/13/17 04:40 Elliptocytes Not Reportable 07/13/17 04:40 Acanthocytes (Spur) Not Reportable 07/13/17 04:40 Rouleaux Not Reportable 07/13/17 04:40 Hemoglobin C Crystals Not Reportable 07/13/17 04:40 Schistocytes Not Reportable 07/13/17 04:40 Malaria parasites Not Reportable 07/13/17 04:40 [place] Bodies Not Reportable 07/13/17 04:40 Hem Pathologist Commnt No 07/13/17 04:40 D-Dimer 695.02 ng/mlDDU (0-234) H 07/12/17 13:25 Sodium 143 mmol/L (137-145) 07/13/17 04:40 Potassium 4.9 mmol/L (3.6-5.0) D 07/13/17 04:40 Chloride 93.6 mmol/L (98-107) L 07/13/17 04:40 Carbon Dioxide 38 mmol/L (22-30) H 07/13/17 04:40 Anion Gap 16 mmol/L 07/13/17 04:40 BUN 10 mg/dL (7-17) 07/13/17 04:40 Creatinine 0.5 mg/dL (0.7-1.2) L 07/13/17 04:40 Estimated GFR > 60 ml/min 07/13/17 04:40 BUN/Creatinine Ratio 20 % 07/13/17 04:40 Glucose 205 mg/dL (65-100) H 07/13/17 04:40 POC Glucose 244 (70-105) H 07/13/17 22:09 Hemoglobin A1c 6.5 % (4-6) H 07/12/17 12:56 Calcium 9.6 mg/dL (8.4-10.2) 07/13/17 04:40 Total Bilirubin 0.70 mg/dL (0.1-1.2) 07/13/17 04:40 AST 8 units/L (5-40) 07/13/17 04:40 ALT 18 units/L (7-56) 07/13/17 04:40 Alkaline Phosphatase 44 units/L (35-129) 07/13/17 04:40 Troponin T < 0.010 ng/mL (0.00-0.029) 07/12/17 13:25 NT-Pro-B Natriuret Pep 188.3 pg/mL (0-900) 07/12/17 13:25 Total Protein 6.7 g/dL (6.3-8.2) 07/13/17 04:40 Albumin 3.4 g/dL (3.9-5) L 07/13/17 04:40 Albumin/Globulin Ratio 1.0 % 07/13/17 04:40
[2017-07-13] MEDS: cefTRIAXone 2 GM in NACL 0.9% 20 ML IV SCH (09:31)
[2017-07-13] MEDS: ZITHROMAX 500 MG in NACL 0.9% 250ML 250 ML IV SCH (09:42)
[2017-07-13] MEDS: PEPCID IV SCH ×2 (09:52→22:44)
[2017-07-14 03:12] LABS: Hematocrit 37.4 % (30.3-42.9); Hemoglobin 11.7 gm/dl (10.1-14.3); Mean Corpuscular HGB Conc 31 % (30-34); Mean Corpuscular Volume 80 fl (79-97); Platelet Count 124 K/mm3 (140-440); Red Blood Count 4.71 M/mm3 (3.65-5.03)
[2017-07-14 03:28] LABS: BUN/Creatinine Ratio 34; Blood Urea Nitrogen 17 mg/dL (7-17); Calcium 9.1 mg/dL (8.4-10.2); Hemolysis Index 6; Mean Corpuscular Hemoglobin 25 pg (28-32)
[2017-07-14] MEDS: DUONEB *Not for PRN Use IH SCH ×4 (09:39→19:18)
[2017-07-14] MEDS: ZITHROMAX 500 MG in NACL 0.9% 250ML 250 ML IV SCH (10:02)
[2017-07-14] MEDS: cefTRIAXone 2 GM in NACL 0.9% 20 ML IV SCH (10:02)
[2017-07-14] MEDS: PEPCID IV SCH (10:03)
--- NOTE | 2017-07-14 14:52 | Progress Note ---
Assessment and Plan Assessment and Plan - Patient Problems (1) Acute respiratory failure Current Visit: Yes Status: Acute Qualifiers: Respiratory failure complication: hypoxia Qualified Code(s): J96.01 - Acute respiratory failure with hypoxia Plan to address problem: NIPPV, supplemental oxygen, nebulizer therapy, pulse oximetry, supportive care. 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 Mansi 1A) Sepsis IV Rocepin and Zithromycon (2) HTN (hypertension) Current Visit: Yes Status: Acute Qualifiers: Hypertension type: essential hypertension Qualified Code(s): I10 - Essential (primary) hypertension Plan to address problem: monitor bp q shift, continue medical management (3) Diabetes Current Visit: Yes Status: Acute Plan to address problem: ADA diet, insulin, accu check (4) Hypothyroid Current Visit: Yes Status: Acute Qualifiers: Hypothyroidism type: acquired Qualified Code(s): E03.9 - Hypothyroidism, unspecified Plan to address problem: continue current therapy, continue thyroid replacement. (5) COPD exacerbation Current Visit: No Status: Acute Plan to address problem: IV abx, steroids, supplemental oxygen, NIPPV, Chest X ray, D dimer (6) DVT prophylaxis Current Visit: No Status: Acute LTAC placement requested Subjective Date of service: 07/14/17 Principal diagnosis: Acute resp failure Interval history: Much improved-agreed for Hospice Objective - Constitutional Vitals: Vital Signs - 12hr 07/14/17 07/14/17 07/14/17 04:00 04:40 07:24 Temperature 97.6 F 97.5 F L Pulse Rate 74 64 68 Pulse Rate [ Bilateral Throughout] Respiratory 20 28 H Rate Respiratory Rate [Bilateral Throughout] Blood Pressure 138/62 138/68 O2 Sat by Pulse 93 93 Oximetry 07/14/17 07/14/17 07/14/17 09:40 09:54 10:00 Temperature Pulse Rate Pulse Rate [ 72 71 Bilateral Throughout] Respiratory 24 Rate Respiratory 20 20 Rate [Bilateral Throughout] Blood Pressure O2 Sat by Pulse 96 Oximetry 07/14/17 07/14/17 07/14/17 12:00 12:21 12:38 Temperature Pulse Rate 65 Pulse Rate [ 80 84 Bilateral Throughout] Respiratory Rate Respiratory 20 20 Rate [Bilateral Throughout] Blood Pressure O2 Sat by Pulse Oximetry General appearance: Present: no acute distress, well-nourished - EENT Eyes: PERRL, EOM intact ENT: hearing intact, clear oral mucosa Ears: bilateral: normal - Neck Neck: supple, normal ROM - Respiratory Respiratory effort: normal Respiratory: bilateral: CTA, diminished, rhonchi - Breasts Breasts: normal - Cardiovascular Rhythm: regular Heart Sounds: Present: S1 & S2. Absent: gallop, rub Extremities: no ischemia, pulses intact, No edema, normal color, Full ROM - Gastrointestinal General gastrointestinal: Present: soft, non-tender, non-distended, normal bowel sounds - Genitourinary Female genitourinary: normal - Integumentary Integumentary: clear, warm, dry - Musculoskeletal Musculoskeletal: 1, strength equal bilaterally - Neurologic Neurologic: moves all extremities - Psychiatric Psychiatric: memory intact, appropriate mood/affect, intact judgment & insight - Allied health notes Allied health notes reviewed: nursing, case management - Labs CBC & Chem 7: 07/14/17 02:50 07/14/17 02:50 Labs: Abnormal lab results 07/13/17 07/14/17 07/14/17 Range/Units 22:09 02:50 02:50 WBC 15.9 H (4.5-11.0) K/mm3 MCH 25 L (28-32) pg RDW 19.0 H (13.2-15.2) % Plt Count 124 L (140-440) K/mm3 Sodium 146 H (137-145) mmol/L Carbon Dioxide 39 H (22-30) mmol/L Creatinine 0.5 L (0.7-1.2) mg/dL Glucose 224 H (65-100) mg/dL POC Glucose 244 H (70-105) 07/14/17 07/14/17 Range/Units 07:28 11:47 WBC (4.5-11.0) K/mm3 MCH (28-32) pg RDW (13.2-15.2) % Plt Count (140-440) K/mm3 Sodium (137-145) mmol/L Carbon Dioxide (22-30) mmol/L Creatinine (0.7-1.2) mg/dL Glucose (65-100) mg/dL POC Glucose 217 H 214 H (70-105)
[2017-07-14] MEDS: PEPCID PO SCH (21:11)
[2017-07-15] MEDS: DUONEB *Not for PRN Use IH SCH ×3 (08:46→16:14)
[2017-07-15] MEDS: cefTRIAXone 2 GM in NACL 0.9% 20 ML IV SCH (09:19)
[2017-07-15] MEDS: PEPCID PO SCH (09:20)
[2017-07-15] MEDS ORDERED: ZITHROMAX PO SCH (10:00)
--- NOTE | 2017-07-15 14:06 | Discharge Summary ---
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 Patient states she wants to go to hospice at home. -Acute on chronic hypoxic respiratory failure due to COPD -Acute exacerbation of COPD, end-stage palliative O2 treatment -Tobacco dependency, quit 16 days ago: Encouragement given -Type 2 diabetes mellitus Disposition: Home with hospice Disposition: DC-50 TO HOSPICE (HOME) Time spent for discharge: 35 min Core Measure Documentation - Palliative Care Palliative Care/ Comfort Measures: Hospice Care - Core Measures Any of the following diagnoses?: none - VTE Discharge Requirements Deep Vein Thrombosis/Pulmonary Embolism Present on Admission: No Has pt received <5 days of overlap therapy or INR<2.0: No Anticoagulant overlap therapy prescribed at discharge: No Contraindication No Overlap Therapy order at DC: Not Indicated Exam - Physical Exam Narrative exam: GEN: WDWN, NAD, AWAKE, ALERT, ORIENTATED HEENT: NCAT, EOMI, PERRL, OP Clear NECK: supple, no adenopathy, no thyromegaly, no JVD CVS/HEART: RRR, NORMAL S1S2, pulses present bilaterally CHEST/LUNGS: CTA B, Symmetrical chest expansion, good air entry bilaterally GI/Abdomen: soft, NTND, good bowel sounds, no guarding or rebound /Bladder: no suprapubic tenderness, no CVA or paraspinal tenderness EXT/Skin: no c/c/e, no obvious rash MSK: FROM x 4 Neuro: CN 2-12 grossly intact, no new focal deficits Psych: calm - Constitutional Vitals: Temp Pulse Resp BP Pulse Ox 98.5 F 80 20 158/71 91 07/15/17 11:50 07/15/17 12:54 07/15/17 12:54 07/15/17 11:50 07/15/17 11:50 Plan Activity: other (no strenous activity until cleared by pcp) Diet: low salt, diabetic Additional Instructions: follow up with [place] physician Follow up with: PRIMARY CARE, [Primary Care Provider] - 3-5 Days Prescriptions: ALBUTEROL NEB's [Proventil 0.083% NEBS] 2.5 mg IH Q3HRT PRN #30 nebu PRN Reason: Shortness Of Breath Azithromycin [Zithromax TAB] 500 mg PO QDAY #1 tablet predniSONE [Deltasone] 5 mg PO QDAY #1 mo
[2017-07-15 16:57] VITALS: BP 158/72
== END 2017-07-15 19:30 | disposition hospice, home (50) | DRG 871 ==
LOC: ED 12:25 → 4A 17:59 → OBSVTOIN 07-14 12:00
PROVIDERS: ADMIT Internal Medicine; ATTEND Internal Medicine
PROC: 5A09357 Assistance with Respiratory Ventilation, Less than 24 Consecutive Hours, Continuous Positive Airway Pressure (ICD-10-PCS; principal; 2017-07-14)
DX: A41.9 Sepsis, unspecified organism (principal); J96.21 Acute and chronic respiratory failure with hypoxia; J44.1 Chronic obstructive pulmonary disease with (acute) exacerbation; Z68.42 Body mass index [BMI] 45.0-49.9, adult; I10 Essential (primary) hypertension; E03.9 Hypothyroidism, unspecified; Z66 Do not resuscitate; E11.9 Type 2 diabetes mellitus without complications; G47.33 Obstructive sleep apnea (adult) (pediatric); Z51.5 Encounter for palliative care; F17.200 Nicotine dependence, unspecified, uncomplicated; K21.9 Gastro-esophageal reflux disease without esophagitis; E66.01 Morbid (severe) obesity due to excess calories; Z82.49 Family history of ischemic heart disease and other diseases of the circulatory system; Z83.3 Family history of diabetes mellitus; Z79.82 Long term (current) use of aspirin; Z88.8 Allergy status to other drugs, medicaments and biological substances; Z79.84 Long term (current) use of oral hypoglycemic drugs
CPT/HCPCS: 36415; 71045; 71275; 80048; 80053; 82962; 83036; 83880; 84484; 85007; 85025; 85027; 85379; 93005; 93010; 94640; 94660; 94760; 96374; 96375; G0378; J0456; J0696; J1170; J2270; J2930; J7050; Q9967